=== PATIENT | female | born 1950 | race Caucasian/White ===

== ENCOUNTER 2017-01-26 08:45 | Inpatient (IN) | payer OTHER ==
[2017-01-10 12:20] VITALS: BMI 64.0
--- NOTE | 2017-01-10 13:05 | PAT Medication Instructions ---
Service Date Jan 10, 2017. Current Home Medication List Furosemide (Lasix), 1 TAB PO PM Levothyroxine Sodium (Synthroid), Unknown Dose PO QAM Sitagliptin-Metformin Hcl (Janumet), Unknown Dose PO BID Medication Instructions For Your Scheduled Surgery - Hold the following medications 48 hours prior to surgery: Sitagliptin-Metformin Hcl (Janumet), Unknown Dose PO BID - Take the following medications the morning of surgery with a sip of water: Levothyroxine Sodium (Synthroid), Unknown Dose PO QAM - Take the following medications as scheduled the night before surgery: Furosemide (Lasix), 1 TAB PO PM If you have any questions please call us at [phone] (Nathaly Marsh PA-C) or [phone] or [phone]
--- NOTE | 2017-01-10 14:01 | DIAGNOSTIC IMAGING REPORT ---
CHEST 2 VIEWS ROUTINE CLINICAL HISTORY: Preoperative evaluation. COMPARISON STUDY: No previous studies for comparison. FINDINGS: Lung volumes are normal. There is no pneumothorax or pleural effusion. There is no consolidation. Pulmonary vascularity is normal. There is mild cardiomegaly. Mediastinal contours are otherwise normal. IMPRESSION: 1. No acute cardiopulmonary findings. 2. Mild cardiomegaly. Electronically signed by: Daniel Pantoja M.D. 01/10/2017 1:59 PM Dictated Date/Time: 01/10/2017 1:58 PM
[2017-01-10 14:42] LABS: INR 1.2 (0.9-1.1); PARTIAL THROMBOPLASTIN RATIO 1.1; PROTHROMBIN TIME (PATIENT) 12.7 SECONDS (9.0-12.0)
[2017-01-10 14:48] LABS: BASO % 0.5 %; BASO ABS # 0.02 K/uL (0-0.2); COMPLETE YES; EOS % 3.5 %; HEMATOCRIT 39.5 % (37-47); IG% 0.3 %; LYMPH % 23.3 %; LYMPH ABS # 0.92 K/uL (1.2-3.4); MEAN CELL VOLUME 93.8 fL (80-100); MEAN CORPUSCULAR HEMOGLOBIN 31.8 pg (25-34); MEAN CORPUSCULAR HGB CONC 33.9 g/dl (32-36); MEAN PLATELET VOLUME 12.1 fL (7.4-10.4); MONO % 12.9 %; NEUT % 59.5 %; PLATELET COUNT 112 K/uL (130-400); RED BLOOD COUNT 4.21 M/uL (4.2-5.4); WHITE BLOOD COUNT 3.95 K/uL (4.8-10.8)
[2017-01-10 14:50] LABS: URINE APPEARANCE CLEAR (CLEAR); URINE BILIRUBIN NEG (NEG); URINE COLOR YELLOW; URINE EPITHELIAL CELL AUTO >30 /lpf (0-5); URINE NITRITE NEG (NEG); URINE SPECIFIC GRAVITY 1.014 (1.000-1.030); UROBILINOGEN POS (NEG)
[2017-01-10 14:54] LABS: MANUAL MICROSCOPIC REQUIRED? NO; REVIEW REQ? NO
[2017-01-10 15:30] LABS: CALCIUM 9.8 mg/dl (8.5-10.1)
[2017-01-10 16:01] LABS: BUN/CREATININE RATIO 7.6 (10-20); CREATININE 0.79 mg/dl (0.60-1.20); POTASSIUM 3.8 mmol/L (3.5-5.1)
--- NOTE | 2017-01-25 12:37 | HISTORY & PHYSICAL EXAMINATION ---
DATE OF ADMISSION: 01/26/2017 CHIEF COMPLAINT: Primary osteoarthritis of the left knee. HISTORY OF PRESENT ILLNESS: Macy is a 66-year-old female who had a right total knee arthroplasty done by Dr. Ibanez about 10 years ago. Unfortunately, she has been having left knee pain recently. She did have a left knee arthroscopy in the past, but unfortunately, has gone on to develop arthritis. The x-rays and clinical examination were diagnostic for primary osteoarthritis of the left knee. After failing extensive conservative treatment, she elected to proceed with a left total knee arthroplasty. PAST MEDICAL HISTORY: Significant for diabetes and hypothyroidism. PAST SURGICAL HISTORY: Significant for left knee arthroscopy, left shoulder rotator cuff repair, right total knee arthroplasty and cholecystectomy. ALLERGIES: LATEX. MEDICATIONS: Include Synthroid 0.25 mg daily, Janumet daily and Lasix 40 mg daily. FAMILY HISTORY: Noncontributory. SOCIAL HISTORY: She is , has no children. Moderately active and ambulates with a rolling walker. REVIEW OF SYSTEMS: She complains of left knee pain. All other pertinent review of systems are negative. PHYSICAL EXAMINATION: GENERAL: She is awake, alert and orient x3. She is in no apparent distress. She is very pleasant. HEENT: Pupils are equal, round and reactive to light. Extraocular movements are intact. Oral mucosa is pink and moist. HEART: Regular rate per radial pulse. LUNGS: Zenia symmetrically bilaterally with no audible breath sounds. ABDOMEN: Soft, nontender, and nondistended. MUSCULOSKELETAL: On physical examination of the left knee, the skin looks good. Her left knee is not very large, but she does have a very large pannus. She has good motion from 0-120 degrees. All of her pain is located medially over the distal medial femoral condyle. IMAGING DATA: X-rays of the left knee do show a varus knee with mostly medial compartmental arthritis. IMPRESSION: Primary osteoarthritis of the left knee. PLAN: We will proceed with a Biomet Vanguard left total knee arthroplasty. Postoperatively, she will be kept in the hospital for 2 midnights for postoperative medical management.
[2017-01-26] VITALS (9 sets, daily range): BP systolic 125–180; BP diastolic 69–81; PULSE 58–80; TEMP 36–36.6; O2SAT 95–100; Ht 154.9 cm; Wt 152.6 kg
[~2017-01-26] VITALS: Ht 154.9 cm; Wt 152.6 kg
[2017-01-26] MEDS: TRANEXAMIC ACID INJ 1,000 MG in SODIUM CHLORIDE 0.9% 100ML 100 ML IV SCH ×2 (06:00→06:30)
[~2017-01-26 08:45] MED LIST: ACETAMINOPHEN 500 MG TAB PO SCH; BUPIVACAINE 0.25% 30 ML VIAL ONE; BUPIVACAINE 0.5 % 5 MG/1 ML PF 10ML VIAL ONE; CEFAZOLIN 3000 MG/65 ML D5W 65 ML IV SCH; FAMOTIDINE 20 MG TAB PO SCH; FENTANYL CITRATE INJ 50 MCG/1 ML 2 ML VIAL ONE; FURO-85 PO; GABAPENTIN 300 MG CAP PO SCH; LACTATED RINGER'S 1000ML 1,000 ML IV SCH; LACTATED RINGER'S 1000ML 500 ML IV ONE; LACTATED RINGER'S 1000ML IV SCH; LEVO25TA PO; MIDAZOLAM HCL 1 MG/ML 2ML VIAL ONE; PROPOFOL IV EMULSION 10 MG/ML 20 ML VIAL IV ONE; ROPIVACAINE 5MG/ML 30 ML 150 MG, BUPIVACAINE/EPINEPHR 0.5% MPF 30 ML, KETOROLAC TROMETH... INFIL SCH; SITA50TA5 PO
[2017-01-26] MEDS ORDERED: ATEN-173 PO (09:22)
[2017-01-26] MEDS ORDERED: LACTATED RINGER'S 1000ML 1,000 ML IV PRN (10:13)
[2017-01-26] MEDS ORDERED: METOPROLOL TARTRATE 1 MG/ML VIAL ONE ×2 (10:15→11:29)
[2017-01-26] MEDS ORDERED: ONDANSETRON INJ 2 MG/ML 2 ML VIAL IV PRN ×2 (10:15→13:00)
[2017-01-26] MEDS ORDERED: FENTANYL CITRATE INJ 50 MCG/1 ML 2 ML VIAL IV PRN (10:15)
--- NOTE | 2017-01-26 10:38 | History & Physical Bridge Note ---
H&P Re-Evaluation Bridge Note: I have examined the patient, reviewed the History & Physical and in the interval since the performance of the History & Physical I have noted the following changes of clinical significance: No changes noted
[2017-01-26] MEDS ORDERED: BACITRACIN 50000 UNIT VIAL ONE (10:48)
[2017-01-26] MEDS ORDERED: ORTHO JOINT ANESTHETIC ONE (10:48)
[2017-01-26] MEDS ORDERED: PROPOFOL IV EMULSION 10 MG/ML 20 ML VIAL IV ONE ×2 (11:33)
--- NOTE | 2017-01-26 12:59 | [facility] Post Operative Brief Note ---
Immediate Operative Summary Operative Date January 26, 2017. Pre-Operative Diagnosis Primary osteoarthritis of the left knee Post-Operative Diagnosis Primary osteoarthritis of the left knee Procedure(s) Performed Left Total Knee Arthroplasty, Cemented Surgeon Dr. Daniel Savage Plant Clerk Surgeon(s) Sudheer Villarreal PA-C Estimated Blood Loss 10ml Findings as above Specimens A. Left knee bone and tissue Complication(s) None Disposition Recovery Room / PACU
[2017-01-26] MEDS ORDERED: MAGNESIUM HYDROXIDE SUSP 30 ML UDC PO PRN (13:00)
[2017-01-26] MEDS ORDERED: MoRPHine SULFATE 2 MG/ML CARP IV PRN (13:00)
[2017-01-26] MEDS ORDERED: SILVER SULFADIAZINE 1% CR 50 GM JAR EXT PRN (13:00)
[2017-01-26] MEDS ORDERED: OXYCODONE HCL IR 5 MG TAB (IMMEDIATE RELEASE) PO PRN (13:00)
[2017-01-26] MEDS ORDERED: BISACODYL 10 MG SUPP PR PRN (13:00)
[2017-01-26] MEDS ORDERED: METOCLOPRAMIDE HCL INJ 5 MG/ML 2 ML VIAL IV PRN (13:00)
[2017-01-26] MEDS ORDERED: SOD PHOSPHATE/SOD BIPHOSPHATE ENEMA 132 ML BTL PR PRN (13:00)
--- NOTE | 2017-01-26 13:40 | DIAGNOSTIC IMAGING REPORT ---
LEFT KNEE 1 OR 2 VIEWS ROUTINE CLINICAL HISTORY: AP/LATERAL IN PACU LEFT KNEE postoperative evaluation COMPARISON: None. DISCUSSION: Total joint replacement. Good contact between prosthetic and underlying bone. Expected soft tissue postoperative changes. Surgical drain is in position. IMPRESSION: Anatomic alignment status post total left knee replacement. Electronically signed by: Humble Dickson M.D. 01/26/2017 1:39 PM Dictated Date/Time: 01/26/2017 1:38 PM
--- NOTE | 2017-01-26 14:50 | Anesthesiology Progress Note ---
Anesthesia Post Op Note Date & Time January 26, 2017 at 14:50 Vital Signs Pain Intensity: 0 Vital Signs Past 12 Hours Date Time Temp Pulse Resp B/P Pulse Ox O2 Delivery O2 Flow Rate FiO2 01/26/17 14:35 36.1 62 15 122/52 99 Nasal Cannula 2 01/26/17 14:25 60 13 122/53 98 Nasal Cannula 2 01/26/17 14:15 70 20 138/58 98 Nasal Cannula 2 01/26/17 14:05 62 15 131/49 99 Nasal Cannula 2 01/26/17 13:55 66 18 119/49 98 Nasal Cannula 2 01/26/17 13:45 66 15 116/47 98 Nasal Cannula 2 01/26/17 13:35 64 18 132/58 99 Nasal Cannula 2 01/26/17 13:25 69 15 138/64 98 Nasal Cannula 2 01/26/17 13:15 72 17 144/62 99 Nasal Cannula 2 01/26/17 13:09 36.2 71 12 140/57 95 Nasal Cannula 2 01/26/17 09:30 36.6 80 18 180/69 97 Room Air Notes Mental Status: alert / awake / arousable, participated in evaluation Pt Amnestic to Procedure: No (recall as expected) Nausea / Vomiting: adequately controlled Pain: adequately controlled Airway Patency, RR, SpO2: stable & adequate BP & HR: stable & adequate Hydration State: stable & adequate Neuraxial Anesthesia: was administered, sensory block is resolving Anesthetic Complications: no major complications apparent Pt doing well.
[2017-01-26] MEDS: SODIUM CHLORIDE 0.9% 1000ML 1,000 ML IV SCH (15:36)
[2017-01-26] MEDS ORDERED: GLUCOSE 10 TABS/TUBE PO PRN (16:00)
[2017-01-26] MEDS ORDERED: DEXTROSE 50% 50 ML SYR IV PRN (16:00)
[2017-01-26] MEDS ORDERED: GLUCAGON FOR INJ 1 MG VIAL SQ PRN (16:00)
[2017-01-26] MEDS ORDERED: GLUCOSE 40% GEL 15 GM TUBE PO PRN (16:00)
[2017-01-26] MEDS: ACETAMINOPHEN IV 1,000 MG in EMPTY BAG 0 ML IV SCH ×2 (16:08→22:40)
--- NOTE | 2017-01-26 16:12 | OPERATIVE REPORT ---
DATE OF OPERATION: 01/26/2017 PREOPERATIVE DIAGNOSIS: Primary osteoarthritis of the left knee with morbid obesity and a BMI of 63. POSTOPERATIVE DIAGNOSIS: Same. PROCEDURE: Left total knee arthroplasty. SURGEON: Dr. Daniel Savage. HORTICULTURE TEACHER: Sudheer Villarreal PA-C, whose assistance was necessary for positioning the leg and helping with instrumentation. ANESTHESIA: Spinal with a left adductor nerve block. COMPLICATIONS: None. CONDITION: Stable to PACU. IMPLANTS USED: I used a Biomet Vanguard left total knee arthroplasty system with a size 62.5 left femur, a size 67 tibia, size 10 posterior stabilized poly and a 28 x 8 patella. All complements were cemented with Palacos-G cement. This case was difficult and caused about 50% increase in the operative time than a standard case because of the patient's weight. She has a BMI of 63. This made retraction very difficult and extra assistants were needed in the room. INDICATIONS: Macy is a pleasant 66-year-old female who had a right total knee arthroplasty 10 years ago. Unfortunately, her left knee became very arthritic. There was a point where she was having trouble walking with a walker and she was becoming more sedentary and wheelchair bound. After significant discussions in the office including her weight, she elected to proceed with a left total knee arthroplasty. OPERATION OF PROCEDURE: On 01/26/2017, she arrived at [facility] for the above procedure. She was seen in the preoperative holding area and the operative extremity was identified and signed. She was then given a spinal anesthetic and a left femoral nerve block. She was given a preoperative antibiotic, taken back to the operating room, laid on the table in supine position and put under basic sedation. The left knee was then prepped and draped in sterile fashion. Time-out was done and the patient and operative extremity was properly identified. A midline incision was made directly over the patella. Dissection was taken down through the fat until the extensor mechanism was exposed. Medial parapatellar approach was utilized and the fat pad was excised and medial retinaculum was released and the knee was flexed. A drill was sent down the center of femoral canal followed by an intramedullary urmila. Off that urmila, a distal femoral cutting block was placed. The distal femur was then resected at 12 mm and 5 degrees of valgus. The posterior referencing guide was used and the femur measured to be a size 62.5. Two drill holes were then placed in 3 degrees of external rotation. A 4-in-1 cutting block was placed and anterior, posterior and chamfer cuts were made. The box cutting guide was then used to resect the box for the posterior stabilizing component. The proximal tibia was exposed. A drill was sent down the center of the tibial canal followed by an intramedullary urmila. Off the urmila was a proximal tibial resection guide was placed and 2 mm was resected off the low medial side. The tibia measured to be a size 67 and each tray was placed in the appropriate rotation, drilled and then punched. Time was then spent removing any meniscal remnants being sure there was complete resection of the ACL, PCL and removing any remnants from the posterior aspect of the knee. Femoral and tibial trials were placed as well as a 10 mm polyethylene spacer. The knee was brought through a full range of motion and felt to be stable. The patella was everted and 8 mm was resected off the posterior aspect of the patella. The patella measured to be a size 28 and 3 drill holes were placed. A trial patella was used. Trial components were then removed, the knee was then irrigated with 3 liters of normal saline solution with bacitracin. Surrounding soft tissues were injected with 100 mL of an orthopedic pain control cocktail. The femoral, tibial, and patellar components were then cemented in place with Palacos-G cement. A size 10 polyethylene spacer seemed to be the best fit. Once cement had dried, a final size 10 poly was snapped into place. The anterior bar was locked. The knee was brought through a full range of motion and felt to be stable. The tourniquet was deflated and hemostasis was controlled. Two drains were placed. The extensor mechanism was closed with a #2 FiberWire suture in the superior medial aspect of the patella and then #1 Vicryl suture, both proximally and distally. Skin was closed with 2-0 Vicryl and 3-0 V-Loc suture and denita. She was then placed in a compressive dressing and taken to the postanesthesia care unit in stable condition. She tolerated the procedure well. I attest to the content of the Intraoperative Record and any orders documented therein. Any exceptio ns are noted below.
[2017-01-26] MEDS ORDERED: PHARMACY GLYCEMIC MGMT CONSULT SCH (17:15)
--- NOTE | 2017-01-26 17:44 | Pharmacy Progress Note ---
Glycemic Control Intl Consult Date of Service January 26, 2017. Scope Glycemic Pharmacist consulted by Dr Savage on 01/26/17 for glycemic control and to write orders per formerly [facility] inpatient glycemic control protocol Objective Weight (Kilograms): 152.600 Accuchecks BSG (last 24hrs): Test 01/26/17 09:18 01/26/17 13:27 01/26/17 17:31 Bedside Glucose 148 mg/dl (70-90) 132 mg/dl (70-90) 142 mg/dl (70-90) Recent Pertinent Medications Outpatient Anti-diabetic Regimen: * Janumet po daily (unknown dose on med rec - will clarify with patient) * A1c unknown Risk Factors for Insulin Resistance: * Steroids: Orthomix (contains 4 mg decadron) x 1 pre-op * Recent Surgery - left TKA on 01/26/17 * Diet: T2DM Assessment & Plan ASSESSMENT: * 66 yr old type 2 diabetic female POD #0 s/p left TKA. * Pt is maintained on oral antidiabetic agents as an outpatient * Oral agents are not recommended for inpatient use d/t drug interactions, changing PO intake, and difficulty titrating for acute hyper/hypoglycemia. ADA recommends re-initiating outpatient oral agents 1-2 days prior to discharge if/ when appropriate if they were held on admission. * ADA & AACE recommend a goal blood sugar range 140-180 mg/dl for the majority of critically ill & non-critically ill patients. However, more stringent targets may be selected in individual cases. Will utilize more stringent goal of 110-140 mg/dl based on patient age & comorbidities. Additionally, tighter glycemic control is warranted to facilitate wound/infection healing. PLAN FOR INPATIENT GLYCEMIC CONTROL: * Holding outpatient oral diabetes medications * Bolus Insulin with NOVOLOG per scale ACHS * Goal Range: Low 110 mg/dL - High 140 mg/dL * Correction Factor: 20 mg/dL/unit * No Nutritional / Prandial insulin ordered at this time - will consider addition to regimen if correction factor is not sufficient * Please note that the plan above was derived based on current level of insulin resistance and hospital stress. These recommendations are appropriate for inpatient admission only. Plan of care upon discharge will need to be reassessed to avoid potential outpatient hypo/hyperglycemia. Thank you.
[2017-01-26] MEDS: KETOROLAC TROMETHAMINE 15 MG/ML VIAL IV. SCH (19:38)
[2017-01-26] MEDS: CEFAZOLIN IV 3,000 MG in DEXTROSE 5% 50ML 50 ML IV SCH (19:39)
[2017-01-26] MEDS: INSULIN ASPART 100 UNITS/ML 3 ML PEN SC SCH ×2 (19:42→21:29)
[2017-01-26] MEDS: DOCUSATE SODIUM 100 MG CAP PO SCH (21:25)
[2017-01-26] MEDS: SENNA 8.6 MG TAB PO SCH (21:26)
[2017-01-26] MEDS: ASPIRIN 325 MG ECTAB PO SCH (21:26)
[2017-01-26] MEDS: FUROSEMIDE 20 MG TAB PO SCH (21:26)
[2017-01-27] VITALS (8 sets, daily range): BP systolic 110–150; BP diastolic 52–82; PULSE 57–77; TEMP 36.2–36.9; O2SAT 94–99
[2017-01-27] MEDS: KETOROLAC TROMETHAMINE 15 MG/ML VIAL IV. SCH ×4 (00:13→18:05)
[2017-01-27] MEDS: SODIUM CHLORIDE 0.9% 1000ML 1,000 ML IV SCH ×2 (00:13→11:30)
[2017-01-27] MEDS: INSULIN ASPART 100 UNITS/ML 3 ML PEN SC SCH ×6 (00:17→21:00)
[2017-01-27] MEDS: CEFAZOLIN IV 3,000 MG in DEXTROSE 5% 50ML 50 ML IV SCH (02:46)
[2017-01-27] MEDS: ACETAMINOPHEN IV 1,000 MG in EMPTY BAG 0 ML IV SCH ×3 (05:19→21:39)
[2017-01-27] MEDS: LEVOTHYROXINE 25 MCG TAB PO SCH (05:20)
[2017-01-27 06:36] LABS: HEMATOCRIT 34.2 % (37-47); MEAN CORPUSCULAR HEMOGLOBIN 31.4 pg (25-34); WHITE BLOOD COUNT 6.22 K/uL (4.8-10.8)
[2017-01-27 07:00] LABS: BUN/CREATININE RATIO 15.7 (10-20); CALCIUM 8.6 mg/dl (8.5-10.1); CREATININE 0.94 mg/dl (0.60-1.20); POTASSIUM 3.9 mmol/L (3.5-5.1)
[2017-01-27 07:05] LABS: MEAN PLATELET VOLUME 11.6 fL (7.4-10.4); PLT ESTIMATE DECREASED
[2017-01-27 07:41] LABS: ESTIMATED AVERAGE GLUCOSE 166 mg/dl; HA1C FLAG Normal (Normal)
[2017-01-27] MEDS: PANTOprazole SOD 40 MG TAB PO SCH (08:51)
[2017-01-27] MEDS: MULTIVITAMIN TAB PO SCH (08:51)
[2017-01-27] MEDS: DOCUSATE SODIUM 100 MG CAP PO SCH ×2 (08:51→21:36)
[2017-01-27] MEDS: ASPIRIN 325 MG ECTAB PO SCH ×2 (08:51→21:36)
[2017-01-27] MEDS ORDERED: LEVO25TA5 PO (08:58)
--- NOTE | 2017-01-27 09:31 | PROGRESS NOTE ---
DATE: 01/27/2017 CHIEF COMPLAINT: Status post left total knee arthroplasty postop day #1. PROGRESS: Macy was seen and examined at bedside today. Overall, she is doing very well. She says she has little to no pain in her knee. She is very happy with the progress to this point. She has been up and ambulating to the bathroom once this morning. She has no complaints. PHYSICAL EXAMINATION: LEFT KNEE: The dressing is clean and dry and the drain is to suction. She is lying with her knee in full extension. She has active dorsiflexion and plantarflexion of her left ankle. LABORATORY DATA: She has an H\T\H of 11.3 and 34.2. Her glucose is stable at 152. Her vital signs are all stable on room air. She is voiding on her own and her Hemovac put out 100 mL this morning. X-rays postoperatively of the left knee showed the prosthesis to be in an anatomic alignment without any evidence of fracture, dislocation or loosening. IMPRESSION: Status post left total knee arthroplasty postop day #1. PLAN: At this point, she is doing very well and happy with her progress. She will be up and ambulating today with physical therapy. Tomorrow the nurse will change the dressing and pull the drain. We are planning discharge to rehab facility on Sunday. DENNIS
[2017-01-27 09:36] LABS: PLATELET COUNT 79 K/uL (130-400)
--- NOTE | 2017-01-27 12:18 | Pharmacy Progress Note ---
Glycemic Control: Progress Nt Date of Service January 27, 2017. Scope Glycemic Pharmacist consulted by Dr Savage on 01/26/17 for glycemic control and to write orders per [facility] inpatient glycemic control protocol. Objective Accuchecks BSG (last 24hrs): Test 01/26/17 13:27 01/26/17 17:31 01/26/17 21:28 01/27/17 00:11 Bedside Glucose 132 mg/dl (70-90) 142 mg/dl (70-90) 171 mg/dl (70-90) 179 mg/dl (70-90) Test 01/27/17 03:53 01/27/17 06:16 01/27/17 08:07 01/27/17 11:45 Bedside Glucose 198 mg/dl (70-90) 152 mg/dl (70-90) 162 mg/dl (70-90) Random Glucose 190 mg/dl (70-99) Laboratory Data (last 24hrs) Test 01/27/17 06:16 Anion Gap 4.0 mmol/L BUN/Creatinine Ratio 15.7 Blood Urea Nitrogen 15 mg/dl Creatinine 0.94 mg/dl Hemoglobin A1c 7.4 % Potassium Level 3.9 mmol/L Sodium Level 143 mmol/L White Blood Count 6.22 K/uL HbA1c: Test 01/27/17 06:16 Hemoglobin A1c 7.4 %(4.5-5.6) H Recent Pertinent Medications Outpatient Anti-diabetic Regimen: * Janumet 50/1000mg * 1 tablet PO BID (patient admits to 1 tab daily some days due to decreased PO intake) * A1c = 7.4 % 01/2017 The patient is currently receiving: * Basal insulin: * none at this time * Bolus Insulin: * NovoLog SQ AC/HS - Goal Range: Low 110 mg/dL - High 140 mg/dL - Correction Factor: 20 mg/dL/unit - Carb ratio of 1 unit per 8 grams CHO consumed * Oral Agents: * held on admission Risk Factors for Insulin Resistance: * IVF: NSS * Recent Surgery: POD#1 * Diet: T2DM Assessment & Plan ASSESSMENT: Initial: * 66 yr old type 2 diabetic female s/p left TKA. * Pt is maintained on oral antidiabetic agents as an outpatient * Oral agents are not recommended for inpatient use d/t drug interactions, changing PO intake, and difficulty titrating for acute hyper/hypoglycemia. ADA recommends re-initiating outpatient oral agents 1-2 days prior to discharge if/ when appropriate if they were held on admission. * ADA & AACE recommend a goal blood sugar range 140-180 mg/dl for the majority of critically ill & non-critically ill patients. However, more stringent targets may be selected in individual cases. Will utilize more stringent goal of 110-140 mg/dl based on patient age & comorbidities. Additionally, tighter glycemic control is warranted to facilitate wound/infection healing. Current: * BSGs decently controlled with current regimen * carb ratio added this AM for further improvement * Likely discharge Sunday * begin home oral medications tomorrow with breakfast to begin transition to outpatient regimen * when PO meds begin, remove carb ratio to avoid hypoglycemia * A1c- current * added to discharge instructions PLAN FOR INPATIENT GLYCEMIC CONTROL: * Basal insulin * forgo at this time * Bolus Insulin: * NOVOLOG SQ AC/HS - Goal Range: Low 110 mg/dL - High 140 mg/dL - Correction Factor: 20 mg/dL/unit - Carb ratio 1 unit per 8 g of CHO consumed - remove when PO meds start * Oral medications - begin 01/28 * Janumet 50/1000mg PO BID taken at home - this is non-formulary, however the individual components are stocked - Januvia 50mg PO BID - Metformin 1000mg PO BID with meals RECOMMENDATIONS FOR DISCHARGE: * Ms Nicholas can continue home regimen at discharge. I did speak with her on the phone an stressed the importance of compliance and reviewed her current A1c with her. * Please note that the plan above was derived based on current level of insulin resistance and hospital stress. These recommendations are appropriate for inpatient admission only. Plan of care upon discharge will need to be reassessed to avoid potential outpatient hypo/hyperglycemia. Thank you.
[2017-01-27] MEDS: FUROSEMIDE 20 MG TAB PO SCH (21:37)
[2017-01-27] MEDS: SENNA 8.6 MG TAB PO SCH (21:37)
[2017-01-28] MEDS: KETOROLAC TROMETHAMINE 15 MG/ML VIAL IV. SCH ×3 (00:31→11:58)
[2017-01-28] MEDS: LEVOTHYROXINE 25 MCG TAB PO SCH (06:00)
[2017-01-28] MEDS: ACETAMINOPHEN IV 1,000 MG in EMPTY BAG 0 ML IV SCH (06:01)
[2017-01-28 07:04] VITALS: BP 150/78; PULSE 75; TEMP 36.4; O2SAT 95
[2017-01-28] MEDS: DOCUSATE SODIUM 100 MG CAP PO SCH ×2 (07:23→19:09)
[2017-01-28] MEDS: PANTOprazole SOD 40 MG TAB PO SCH (07:26)
[2017-01-28] MEDS: MULTIVITAMIN TAB PO SCH (07:26)
[2017-01-28] MEDS: METFORMIN HCL 500 MG TAB PO SCH ×2 (07:27→17:33)
[2017-01-28] MEDS: SITAGLIPTIN 25 MG TAB PO SCH ×2 (07:27→17:32)
[2017-01-28] MEDS: INSULIN ASPART 100 UNITS/ML 3 ML PEN SC SCH ×4 (07:32→20:47)
[2017-01-28] MEDS: ASPIRIN 325 MG ECTAB PO SCH ×2 (07:39→20:45)
[2017-01-28] MEDS ORDERED: RXC5 PO (09:02)
[2017-01-28] MEDS ORDERED: ASPEC325 PO (09:02)
--- NOTE | 2017-01-28 09:04 | Discharge Instructions ---
Discharge Instructions Date of Service January 28, 2017. Admission Reason for Admission: Left Knee Osteoarthritis Discharge Discharge Diagnosis / Problem: Left Total Knee Discharge Goals Goal(s): Decrease discomfort, Improve function Activity Recommendations Activity Limitations: as noted below . Instructions / Follow-Up Instructions / Follow-Up Activity and Therapy Recommendations: * If you are using [facility] then Physical Therapy will be provided until they feel you are ready to start Outpatient Physical Therapy. If you are not using a Home Health agency then Outpatient Physical Therapy should start about 3-5 days from your day of surgery. Therapy will last about 6-10 weeks * It is important not to put a pillow under your knee when you are relaxing or sleeping. It is just as important to make sure you are getting your knee perfectly straight as it is to regain your knee bend. * You were shown a series of exercises in the hospital. Do these exercises three times each day including the exercises you were shown in physical therapy. * Get up and walk several times each day. For the first four weeks, try not to stand or walk for more than one hour at a time. If you do stand or walk for more than one hour, you will not hurt anything, but your leg will likely swell. * As you feel comfortable, you may change from the walker or crutches to a cane and then to independent walking. Medications: * Narcotic You will likely be sent home from the hospital with a prescription for the narcotic pain medication that worked best throughout your stay. * Aspirin Most patients will be required to take Aspirin 325mg twice a day for 6 weeks after surgery. This is obtained [id number] and a prescription is not necessary. * Other medications may be prescribed for specific circumstances. If you have any questions, please call the office at . * Resume previous home medications unless otherwise instructed TEDs/Elastic Stockings: The white elastic stockings help limit swelling and prevent blood clots from forming in your legs.~ The more you wear them, the more they work. Wear them for six weeks. Showering: You may shower 5 days from the day of surgery. Let the soapy shower water run over the denita. Do not scrub or soak the incision. Things To Watch For: * Drainage from the incision site that occurs more than one week after your surgery. * Increased redness at the incision site. * Fever above 102 degrees Fahrenheit. * Unusual chest pain or shortness of breath. * Call [facility] at with any of the above problems Follow-Up Visit: Follow-up with Dr. Savage 2-3 weeks after your day of surgery. An appointment was probably scheduled when you signed-up for surgery in the office. If you have any questions call Office Instructions: More detailed instructions as well as Frequently Asked Questions were provided in a folder by our office when you signed-up for surgery. Please review these instructions when you get home. If you have any further questions or concerns, please feel free to call the office at [phone] Current Hospital Diet Patient's current hospital diet: Diabetes Type 2 Diet Discharge Diet Recommended Diet: Diabetes Type 2 Diet Procedures Procedures Performed: Left Total Knee Arthroplasty, Cemented Pending Studies Studies pending at discharge: no Laboratory Results Hemoglobin A1c Test 01/27/17 06:16 Range/Units Estimated Average Glucose 166 mg/dl Hemoglobin A1c 7.4 H 4.5-5.6 % Medical Emergencies . Who to Call and When: Medical Emergencies: If at any time you feel your situation is an emergency, please call 911 immediately. . Non-Emergent Contact Non-Emergency issues call your: Surgeon Call Non-Emergent contact if: wound has increased drainage, wound has increased redness . "Provider Documentation" section prepared by Daniel Savage. . VTE Core Measure Inpt VTE Proph given/why not?: Other Anticoagulation (Aspirin 325 twice a day for 6 weeks), T.E.D. Stockings
[2017-01-28] MEDS ORDERED: NURSING VERBAL MED ORDER ONE (09:30)
--- NOTE | 2017-01-28 10:33 | PROGRESS NOTE ---
DATE: 01/28/2017 CHIEF COMPLAINT: Status post left total knee arthroplasty postop day #2. HISTORY OF PRESENT ILLNESS: Macy was seen and examined at bedside today. Overall, she is doing very well. She is not having much pain in the knee. She is ambulating well with physical therapy. She is happy with her progress at this point and has no complaints. PHYSICAL EXAMINATION: LEFT KNEE: The dressing has been changed. The drain has been pulled: The incision is clean and dry without any signs of infection or drainage. She is neurovascularly intact. IMPRESSION: Status post left total knee arthroplasty postop day #2. PLAN: At this point, she is actually doing fairly well. The incision looks good and we will get more therapy today. She is on aspirin 325 twice a day for DVT prophylaxis. Her plan is to be discharged to a rehab facility tomorrow morning.
[2017-01-28] MEDS: ACETAMINOPHEN 500 MG TAB PO SCH ×2 (13:59→20:46)
[2017-01-28 15:12] VITALS: BP 148/61; PULSE 64; TEMP 36.2; O2SAT 100
[2017-01-28] MEDS: SENNA 8.6 MG TAB PO SCH (19:09)
[2017-01-28] MEDS: FUROSEMIDE 20 MG TAB PO SCH (20:45)
[2017-01-28 23:15] VITALS: BP 128/68; PULSE 70; TEMP 36.5; O2SAT 95
[2017-01-29] MEDS: LEVOTHYROXINE 25 MCG TAB PO SCH (05:44)
[2017-01-29] MEDS: ACETAMINOPHEN 500 MG TAB PO SCH ×3 (05:45→21:00)
[2017-01-29 06:45] VITALS: BP 146/78; PULSE 67; TEMP 36.6; O2SAT 94
[2017-01-29] MEDS: INSULIN ASPART 100 UNITS/ML 3 ML PEN SC SCH ×4 (08:00→21:00)
--- NOTE | 2017-01-29 08:29 | Anesthesiology Progress Note ---
Anesthesia Post Op Note Date & Time January 29, 2017 at 08:28 Vital Signs Pain Intensity: 2.0 Vital Signs Past 12 Hours Date Time Temp Pulse Resp B/P Pulse Ox O2 Delivery O2 Flow Rate FiO2 01/29/17 06:45 36.6 67 16 146/78 94 Room Air 01/28/17 23:15 36.5 70 16 128/68 95 Room Air Notes Mental Status: alert / awake / arousable, participated in evaluation Pt Amnestic to Procedure: Yes Nausea / Vomiting: adequately controlled Pain: adequately controlled Airway Patency, RR, SpO2: stable & adequate BP & HR: stable & adequate Hydration State: stable & adequate Neuraxial Anesthesia: sensory block resolved Anesthetic Complications: no major complications apparent
[2017-01-29] MEDS: METFORMIN HCL 500 MG TAB PO SCH ×2 (09:22→18:10)
[2017-01-29] MEDS: SITAGLIPTIN 25 MG TAB PO SCH ×2 (09:23→18:10)
[2017-01-29] MEDS: DOCUSATE SODIUM 100 MG CAP PO SCH ×2 (09:23→20:32)
[2017-01-29] MEDS: ASPIRIN 325 MG ECTAB PO SCH ×2 (09:24→20:39)
[2017-01-29] MEDS: MULTIVITAMIN TAB PO SCH (09:24)
[2017-01-29] MEDS: PANTOprazole SOD 40 MG TAB PO SCH (09:25)
[2017-01-29 14:08] VITALS: BP 146/78; PULSE 67; TEMP 36.6; O2SAT 94
[2017-01-29 15:33] VITALS: BP 148/68; PULSE 68; TEMP 36.2; O2SAT 90
[2017-01-29] MEDS: SENNA 8.6 MG TAB PO SCH (20:32)
[2017-01-29] MEDS: FUROSEMIDE 20 MG TAB PO SCH (20:33)
--- NOTE | 2017-02-05 22:04 | DISCHARGE SUMMARY ---
DISCHARGE DIAGNOSIS: Primary osteoarthritis of the left knee. PROCEDURE: Left total knee arthroplasty on 01/26/[address] Daniel Savage. DISCHARGE INSTRUCTIONS: 1. Aspirin 325 mg twice a day. 2. Oxycodone 5-10 mg every 4 hours as needed for pain. 3. Atenolol 25 mg daily. 4. Lasix 20 mg daily. 5. Synthroid 25 mcg daily. 6. Janumet 50-1000 mg twice a day. 7. Weightbear as tolerated. 8. Follow up with Dr. Savage in 2-3 weeks. 9. Call the office of Dr. Savage with any questions or concerns. HOSPITAL COURSE: Macy is a pleasant 66-year-old female who presented to my office with chronic left knee pain. X-rays and clinical examination were diagnostic for primary osteoarthritis of the left knee. After failing conservative treatment, she elected to undergo a left total knee arthroplasty. On 01/26/2017, she arrived at [facility] and underwent a left total knee arthroplasty without complications. She had a spinal anesthetic and a left femoral nerve block. Postoperatively, she was discharged to general orthopedic floors. Her hospital course was uneventful. On postop day #1, her H\T\H was stable at 11.3 and 34.2. She was able to get up and ambulate with physical therapy and her pain was well controlled. On postop day #2, she continued to do well. The dressing was changed, the drain was pulled and she still worked well with physical therapy. On postop day #3, she continued doing well. She has got a little bit more physical therapy, her pain was controlled and she was subsequently discharged to rehab with the above instructions.
== END 2017-01-29 22:25 | DRG 470 ==
LOC: ENRESERVDT → ENRESERVTM → C.ACU 08:45 → C.3E 10:30
PROVIDERS: ADMIT Orthopaedic Surgery; ATTEND Orthopaedic Surgery
PROC: 0SRD0J9 Replacement of Left Knee Joint with Synthetic Substitute, Cemented, Open Approach (ICD-10-PCS; principal; 2017-01-26 11:10)
DX: M17.12 Unilateral primary osteoarthritis, left knee (principal); Z68.44 Body mass index [BMI] 60.0-69.9, adult; I38 Endocarditis, valve unspecified; E11.9 Type 2 diabetes mellitus without complications; E66.01 Morbid (severe) obesity due to excess calories; K44.9 Diaphragmatic hernia without obstruction or gangrene; R00.2 Palpitations; M54.2 Cervicalgia; E03.9 Hypothyroidism, unspecified; Z96.651 Presence of right artificial knee joint; I65.29 Occlusion and stenosis of unspecified carotid artery; R60.0 Localized edema; Z79.899 Other long term (current) drug therapy; Z79.84 Long term (current) use of oral hypoglycemic drugs

== ENCOUNTER 2019-01-02 12:28 | Inpatient (IN) ==
--- NOTE | 2019-01-01 10:07 | Anesthesiology Consultation ---
Date of Service January 01, 2019 Assessment & Plan (1) Encounter for pre-operative examination: - Patient scheduled for right shoulder abscess incision and drainage with total shoulder components exchange on 01/02/19 (chart sent to PAT for review day prior to surgery 01/01*). Per RN phone interview 01/01, patient states a. fib during 12/2018 [facility] [place] admission 2/2 sepsis (appears to be new per chart review). Continued on beta eduar; denies being started on ASA/AC upon discharge. It sounds like patient was converted with medical management per RN interview. Per Dr. Savage, there is concern that the shoulder abscess might be the etiology of recent sepsis and feel that this surgery is urgent. Discussed with Dr. Wolf Rodas (scheduled to have patient's case)- order written for [facility] cardio evaluation tomorrow morning at [facility] prior to surgery (OR aware and will have pa tiejuan daniel come in early). Awaiting cardio preop evaluation and vitals AM DOS to determine if acceptable risk to proceed with surgery. - S/P Right reverse TSA= 03/22/18= Grade view 2, "elective" glidescope due to suboptimal position on beach chair "atraumatic", ETT 7.0 at [facility] - Check BSG AM DOS Chart Review Chart Review: Patient NOT seen in Pre Admission Testing History Surgery Operation Date: 01/02/19 14:50 Proposed Procedures p Right Shoulder Abscess Incision and Drainage with Exchange of Total Shoulder Components - Daniel Savage, DO Height/Weight Height: 5 ft 1 in Weight: 144.242 kg Allergies Allergy/AdvReac Type Severity Reaction Status Date / Time latex Allergy Unknown DRY Cough, Verified 01/01/19 10:28 HIVES, RASH prednisone AdvReac Unknown elevated Verified 01/01/19 10:28 LFT Medications Home Medications Medication Instructions Recorded Confirmed Last Taken Lactobacillus acidophilus 1 cap PO QAM 01/01/19 01/01/19 Unknown [Probiotic Acidophilus] amoxicillin-pot clavulanate 1 tab PO Q12H 01/01/19 01/01/19 Unknown [Augmentin] atenolol 25 mg PO QAM 01/01/19 01/01/19 Unknown furosemide 40 mg PO BID 01/01/19 01/01/19 Unknown gabapentin 300 mg PO BID 01/01/19 01/01/19 Unknown insulin glargine [Lantus U-100 34 unit SUBCUT BID 01/01/19 01/01/19 Unknown Insulin] levothyroxine [Synthroid] 25 mcg PO QAM 01/01/19 01/01/19 Unknown sitagliptin-metformin [Janumet] 1 tab PO BID 01/01/19 01/01/19 Unknown Past Medical History Medical History Essential tremor Morbid obesity Diabetes mellitus IDDM Aortic stenosis MODERATE (OSEI 1.1CM2, MEAN GRADIENT 25MMHG) PER 12/2018 ECHO Osteoarthritis Rotator cuff arthropathy of right shoulder Atrial fibrillation ?NEW ONSET A. 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 Hypertension Hypothyroidism Kidney stones Sepsis 12/2018 AT [facility]- ?RELATED TO SHOULDER ABSCESS (REASON FOR UPCOMING PROCEDURE) Thrombocytopenia CHRONIC FELT 2/2 CIRRHOSIS Past Family History Family History Aunt Family history of diabetes mellitus Mother Family history of diabetes mellitus Past Surgical History Surgical History History of esophagogastroduodenoscopy (EGD) History of total right knee replacement History of total replacement of right shoulder joint History of total replacement of left shoulder joint PARTIAL History of total left knee replacement History of cholecystectomy History of cardiac cath 2014= NO STENTS History of colonoscopy History of cystoscopy WITH KIDNEY STONE BASKETING/REMOVAL Testing Electrocardiogram Date: 02/18/18 Findings: + NSR @ (64) Chest X-Ray Date: 03/15/18 Findings: + NAD and + cardiomegaly (MILD) Echocardiogram Date: 12/20/18 EF 60-65%. LVH. Mild LAE/RENEE. Mild MR. Moderate aortic stenosis (OSEI 1.1cm2, MG 25mmhg). Grade II DD. Moderate to severe mitral annular calcification with mild mitral stenosis (MG 6mmhg). Mild pulmonary HTN 44mmhg. Consistent with increased risk atrial pressure. Cardiac Catheterization Date: 05/27/15 Angiographically normal coronary arteries. Laboratory Results 12/30/18 WBC 6.02 H/H 11.0/33.7 PLATELETS 139 SODIUM 140 POTASSIUM 3.6 CHLORIDE 102 CO2 26 BUN 13 CREATININE 0.76 GLUCOSE 79
--- NOTE | 2019-01-02 11:10 | History & Physical Report ---
Date of Service January 02, 2019 Assessment & Plan (1) Prosthetic shoulder infection: We will proceed with an irrigation and debridement with component exchange of the right shoulder. Postoperatively she will be admitted to the hospital and kept on IV antibiotics. Infectious disease team will be consulted and the hospitalist will be consulted as well. She will likely be in the hospital for about 3 days postoperatively. Present on Admission?: Yes History of Present Illness Primary Care Provider: Prisca Ortega MD Macy is a pleasant 68-year-old female who underwent a reverse right shoulder arthroplasty about 10 months ago. She did very well for 9 months. She has full range of motion and no pain within her shoulder. Her postoperative course was completely uneventful. Unfortunately she was not compliant with her diabetic medications postoperatively. Her hemoglobin A1c ming to 11.7. She then developed cellulitis of her legs and it spread to her abdomen. She started on oral antibiotics but unfortunately her condition worsened. She then became septic. She went to a local emergency room and was treated with fluids and pressors and was transferred to [facility]. While at [facility] her condition improved but she developed a large abscess on the anterior aspect of her right shoulder. She began having significant right shoulder pain. She then presented to my office with an obvious acute hematogenous right shoulder infection. After brief discussions in the office we elected to proceed with an I&D and complement exchange. Allergies Allergy/AdvReac Type Severity Reaction Status Date / Time latex Allergy Unknown DRY Cough, Verified 01/01/19 10:28 HIVES, RASH prednisone AdvReac Unknown elevated Verified 01/01/19 10:28 LFT Home Medications Home Medications Medication Instructions Recorded Confirmed Type Lactobacillus acidophilus 1 cap PO QAM 01/01/19 01/01/19 History [Probiotic Acidophilus] amoxicillin-pot clavulanate 1 tab PO Q12H 01/01/19 01/01/19 History [Augmentin] atenolol 25 mg PO QAM 01/01/19 01/01/19 History furosemide 40 mg PO BID 01/01/19 01/01/19 History gabapentin 300 mg PO BID 01/01/19 01/01/19 History insulin glargine [Lantus U-100 34 unit SUBCUT BID 01/01/19 01/01/19 History Insulin] levothyroxine [Synthroid] 25 mcg PO QAM 01/01/19 01/01/19 History sitagliptin-metformin [Janumet] 1 tab PO BID 01/01/19 01/01/19 History Past Med/Surg History Medical History Essential tremor Morbid obesity Diabetes mellitus IDDM Aortic stenosis MODERATE (OSEI 1.1CM2, MEAN GRADIENT 25MMHG) PER 12/2018 ECHO Osteoarthritis Rotator cuff arthropathy of right shoulder Atrial fibrillation ?NEW ONSET A. 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 Hypertension Hypothyroidism Kidney stones Sepsis 12/2018 AT [facility]- ?RELATED TO SHOULDER ABSCESS (REASON FOR UPCOMING PROCEDURE) Thrombocytopenia CHRONIC FELT 2/2 CIRRHOSIS Surgical History History of esophagogastroduodenoscopy (EGD) History of total right knee replacement History of total replacement of right shoulder joint History of total replacement of left shoulder joint PARTIAL History of total left knee replacement History of cholecystectomy History of cardiac cath 2014= NO STENTS History of colonoscopy History of cystoscopy WITH KIDNEY STONE BASKETING/REMOVAL Family History Aunt Family history of diabetes mellitus Mother Family history of diabetes mellitus Social History Preferred Language: Kyrgyz Communication Ability: Effective Or First Assist Registered Nurse Required: No Beliefs That Will Affect Care: None Current Living Situation: Alone Other Information That Helps Us Care for You: No Feels Safe at Home: Yes Safety Concerns: Feels Safe At This Time Smoking Status: Never smoker Do You Dip or Chew Tobacco: No Second Hand Exposure: No Tobacco Cessation Education Requested by Patient: No Hx Alcohol Use: No Hx Substance Use: No Physical Exam Musculoskeletal: On physical examination of the right shoulder, there is a large anterior abscess. She has limited range of motion of her shoulder at this time. Her radial median ulnar and axillary nerves are checked and intact.
[~2019-01-02 12:28] MED LIST changes: -ACETAMINOPHEN 500 MG TAB PO SCH; -BUPIVACAINE 0.25% 30 ML VIAL ONE; -CEFAZOLIN 3000 MG/65 ML D5W 65 ML IV SCH; +CEFAZOLIN 3000MG 65 ML IV SCH; -FAMOTIDINE 20 MG TAB PO SCH; -FENTANYL CITRATE INJ 50 MCG/1 ML 2 ML VIAL ONE; -FURO-85 PO; -GABAPENTIN 300 MG CAP PO SCH; -LACTATED RINGER'S 1000ML 1,000 ML IV SCH; -LACTATED RINGER'S 1000ML 500 ML IV ONE; -LACTATED RINGER'S 1000ML IV SCH; -LEVO25TA PO; +LR 15ML/HR IV SCH; +LR 60ML/HR IV SCH; -MIDAZOLAM HCL 1 MG/ML 2ML VIAL ONE; -PROPOFOL IV EMULSION 10 MG/ML 20 ML VIAL IV ONE; +ROPIVACAINE 0.5% 5 MG/ML 30 ML VIAL ONE; -ROPIVACAINE 5MG/ML 30 ML 150 MG, BUPIVACAINE/EPINEPHR 0.5% MPF 30 ML, KETOROLAC TROMETH... INFIL SCH; -SITA50TA5 PO
--- NOTE | 2019-01-02 13:34 | History & Physical Bridge Note ---
Date of Service January 02, 2019 History & Physical Bridge Note I have examined the patient, reviewed the History & Physical and in the interval since the performance of the History & Physical I have noted the following changes of clinical significance: no changes noted
[2019-01-02] MEDS ORDERED: PROPOFOL IV EMULSION 10 MG/ML 20 ML VIAL IV ONE (14:33)
[2019-01-02] MEDS ORDERED: MIDAZOLAM HCL 1 MG/ML 2ML VIAL ONE (14:33)
[2019-01-02] MEDS ORDERED: fentaNYL citrate 100 MCG/2 ML VIAL ONE (14:33)
[2019-01-02] MEDS ORDERED: ONDANSETRON INJ 2 MG/ML 2 ML VIAL ONE (14:33)
[2019-01-02] MEDS ORDERED: ROCURONIUM BROMIDE 10 MG/ML 5 ML VIAL ONE (14:33)
[2019-01-02] MEDS ORDERED: LIDOCAINE HCL 2% 2 ML VIAL/AMP(20MG/ML) INFIL ONE (14:33)
--- NOTE | 2019-01-02 15:30 | Cardiology Consultation ---
Date of Consultation January 02, 2019 Assessment & Plan (1) Atrial fibrillation: She reportedly had atrial fibrillation during her hospitalization for sepsis recently, she seemed to have been aware of it based on symptoms of a rapid heart rate, she recalls being on heparin and she was not sent home on anticoagulants. Although I do not have details regarding the atrial arrhythmia it seems that it was not felt to be a long-standing issue. Should she develop recurrent atrial fibrillation it sounds as though rate control would not be an issue so I would not do anything in advance regarding this arrhythmia. (2) Aortic stenosis: She has aortic stenosis which is graded as moderate with a valve area of 1.1 and a valve gradient of 25 mmHg by echocardiography recently in [place]. That should not interfere with her surgery. (3) Mitral regurgitation: She has audible mitral regurgitation on exam, it does not seem to be mentioned in the echo report so I suspect it is not severe. He does report mild mitral stenosis. This should also not be an issue for the surgery. (4) RBBB: She has a long-standing right bundle branch block, her electrocardiogram today is no different than it was several years ago or recently. This should not be an issue. (5) Encounter for pre-operative examination: Although she has a number of cardiac abnormalities including a history of atrial fibrillation, right bundle branch block, aortic stenosis, mitral regurgitation and diastolic dysfunction I think she is an acceptable risk for surgery. I would be careful with volume during and after the surgery however. If atrial fibrillation occurs we would have to use rate control but does not sound as though she had hemodynamically significant problems with it. I would therefore go ahead with surgery as planned. History of Present Illness Reason for Consultation: Preoperative clearance Attending Physician: Daniel Savage, History of Present Illness This is a very pleasant 68-year-old woman presenting for surgery for a right shoulder infection. She does have a history of catheterization, I believe twice, the more recent performed in [place]. I believe she had a catheterization 2005 which based on historical records is referenced to having nonobstructive coronary artery disease, however she also had a catheterization May 27, 2015 in [place] which is reported to show normal coronary arteries. She has never had symptoms of angina, she does not have chest discomfort, she does have shortness of breath but she is quite overweight. She does have a history of diabetes mellitus, hyperlipidemia and hypertension. She was recently in [facility] for sepsis where she had a transthoracic echo performed. The report I have is a impressions copied into the discharge summary so it does not give the date of the echo, other records say that it was done December 20, 2018. This showed normal left ventricular size with left ventricular hypertrophy but normal left ventricular systolic function, ejection fraction 60 to 65%. She did have moderate aortic stenosis with a valve area of 1.1 cm and a mean gradient of 25 mmHg. She did have mitral annular calcification with mild mitral stenosis and she had mild mitral stenosis. I believe she had atrial fibrillation while at [place], she was aware of her heart beating rapidly but I believe it was brief (I do not have detailed records to review) and she was sent home without anticoagulants but she recalls being on heparin during her hospitalization. Since going home she has had no palpitatio ns. She does have chronic leg edema and cellulitis, this is actually been improved and she has visiting nurses. She is quite obese. Allergies Allergy/AdvReac Type Severity Reaction Status Date / Time latex Allergy Unknown DRY Cough, Verified 01/02/19 12:56 HIVES, RASH prednisone AdvReac Unknown elevated Verified 01/02/19 12:56 LFT Home Medications Home Medications Medication Instructions Recorded Confirmed Type Lactobacillus acidophilus 1 cap PO QAM 01/01/19 01/02/19 History [Probiotic Acidophilus] amoxicillin-pot clavulanate 1 tab PO Q12H 01/01/19 01/02/19 History [Augmentin] atenolol 25 mg PO QAM 01/01/19 01/02/19 History furosemide 40 mg PO BID 01/01/19 01/02/19 History gabapentin 300 mg PO BID 01/01/19 01/02/19 History insulin glargine [Lantus U-100 17 unit SUBCUT BID 01/01/19 01/02/19 History Insulin] levothyroxine [Synthroid] 25 mcg PO QAM 01/01/19 01/02/19 History sitagliptin-metformin [Janumet] 1 tab PO BID 01/01/19 01/02/19 History Patient History Medical History Essential tremor Morbid obesity Diabetes mellitus IDDM Aortic stenosis MODERATE (OSEI 1.1CM2, MEAN GRADIENT 25MMHG) PER 12/2018 ECHO Osteoarthritis Rotator cuff arthropathy of right shoulder Cellulitis (Acute) Atrial fibrillation ?NEW ONSET A. 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 Thrombocytopenia CHRONIC FELT 2/2 CIRRHOSIS Surgical History History of esophagogastroduodenoscopy (EGD) History of total right knee replacement History of total replacement of right shoulder joint History of total replacement of left shoulder joint PARTIAL History of total left knee replacement History of cholecystectomy History of cardiac cath 2014= NO STENTS History of colonoscopy History of cystoscopy WITH KIDNEY STONE BASKETING/REMOVAL Family History Aunt Family history of diabetes mellitus Mother Family history of diabetes mellitus Social History Preferred Language: Cymraes Communication Ability: Effective Merchandise Presentation Associate Required: No Beliefs That Will Affect Care: None Current Living Situation: Alone Other Information That Helps Us Care for You: No Feels Safe at Home: Yes Safety Concerns: Feels Safe At This Time Smoking Status: Never smoker Do You Dip or Chew Tobacco: No Second Hand Exposure: No Tobacco Cessation Education Requested by Patient: No Hx Alcohol Use: No Hx Substance Use: No Review of Systems Review of Systems: All systems reviewed & are unremarkable except as noted in HPI & below Physical Exam Physical Exam: Constitutional: Alert, cooperative and in no distress. She is obese. HEENT: Unremarkable Neck: No jugular venous distention, carotid pulses are normal and equal bilaterally without bruits. Pulmonary: Clear to auscultation bilaterally. Cardiac: Regular rhythm with a grade 2/6 crescendo decrescendo murmur at the base with little radiation to the carotids, a grade 3/6 holosystolic murmur at the apex, no gallop or rub. Abdomen: Soft, nontender with normal bowel sounds. Extremities: +2 bilateral pedal edema. Erythema of her distal extremities. Neurologic: No focal findings. Gait was not tested. Skin: No rash, ecchymoses or petechiae. Results & Data Vital Signs (Past 12 Hours) Vital Signs Temp Pulse Resp BP Pulse Ox 01/02/19 13:00 36.9 C 76 17 124/58 L 97 Diagnostic Findings An electrocardiogram today demonstrates sinus rhythm at 78 bpm, she has a leftward axis in the right bundle branch block pattern. Similar to prior electrocardiograms.
--- NOTE | 2019-01-02 16:25 | Orthopedic Progress Note ---
Date of Service January 02, 2019 Assessment & Plan (1) Prosthetic shoulder infection: Unfortunately there are several other emergencies that came into the operating room this evening. Due to staffing issues will be unable to wash out her shoulder until much later this evening. She is currently on antibiotics. I felt it was safe to wait until tomorrow to do the washout and complement exchange of her shoulder. I explained this to her at bedside and she understood. I am going to feed her her a diabetic controlled diet and keep her n.p.o. after midnight tonight. Present on Admission?: Yes Subjective Macy was seen in the preoperative holding area. Overall she is doing well in good spirits. She still has some pain in the shoulder. She has no new complaints. Results & Data Vital Signs (Past 12 Hours) Vital Signs Temp Pulse Resp BP Pulse Ox 01/02/19 13:00 36.9 C 76 17 124/58 L 97
[2019-01-02] MEDS ORDERED: ONDANSETRON INJ 2 MG/ML 2 ML VIAL IV PRN (17:06)
[2019-01-02] MEDS ORDERED: METOCLOPRAMIDE HCL INJ 5 MG/ML 2 ML VIAL IV PRN (17:06)
[2019-01-02] MEDS ORDERED: PHARMACY GLYCEMIC MGMT CONSULT PRN (18:01)
[2019-01-02] MEDS: AMOXICILLIN/CLAVULANATE 500 MG TAB PO SCH (18:49)
[2019-01-02] MEDS: FUROSEMIDE 20 MG TAB PO SCH (18:49)
[2019-01-02] MEDS: INSULIN ASPART 100 UNITS/ML 3 ML PEN SC SCH ×2 (18:54→21:05)
[2019-01-02] MEDS: SODIUM CHLORIDE 0.9% 1000ML 1,000 ML IV SCH (19:34)
[2019-01-02] MEDS: GABAPENTIN 300 MG CAP PO SCH (20:40)
[2019-01-02] MEDS ORDERED: Nursing to Pharmacy Communication ONE (23:46)
[2019-01-03] MEDS ORDERED: INSULIN ASPART 100 UNITS/ML 3 ML PEN SC SCH
[2019-01-03] MEDS: INSULIN ASPART 100 UNITS/ML 3 ML PEN SC SCH ×4 (00:12→21:59)
[2019-01-03] MEDS: LEVOTHYROXINE SODIUM 25 MCG TABLET PO SCH (05:56)
[2019-01-03] MEDS: FUROSEMIDE 20 MG TAB PO SCH ×2 (12:34→21:25)
[2019-01-03] MEDS: AMOXICILLIN/CLAVULANATE 500 MG TAB PO SCH (12:34)
--- NOTE | 2019-01-03 14:10 | History & Physical Bridge Note ---
Date of Service January 03, 2019 History & Physical Bridge Note I have examined the patient, reviewed the History & Physical and in the interval since the performance of the History & Physical I have noted the following changes of clinical significance: no changes noted
[2019-01-03] MEDS ORDERED: EPINEPHrine INJ 1 MG/ML AMP ONE (15:28)
[2019-01-03] MEDS ORDERED: ROPIVACAINE 0.5% 5 MG/ML 30 ML VIAL ONE (15:28)
[2019-01-03] MEDS ORDERED: CEFAZOLIN 3000MG/72.5 ML BAG IV ONE (15:31)
[2019-01-03] MEDS ORDERED: fentaNYL citrate 100 MCG/2 ML VIAL ONE ×3 (15:38→18:38)
[2019-01-03] MEDS ORDERED: ROCURONIUM BROMIDE 10 MG/ML 5 ML VIAL ONE (15:38)
[2019-01-03] MEDS ORDERED: MIDAZOLAM HCL 1 MG/ML 2ML VIAL ONE (15:38)
[2019-01-03] MEDS ORDERED: GLUCAGON FOR INJ 1 MG VIAL IM PRN (16:00)
[2019-01-03] MEDS ORDERED: GLUCOSE 10 TABS/TUBE PO PRN (16:00)
[2019-01-03] MEDS ORDERED: DEXTROSE 50% 50 ML SYRINGE IV PRN (16:00)
[2019-01-03] MEDS ORDERED: CARBOHYDRATES FOR HYPOGLYCEMIA PO PRN (16:00)
[2019-01-03] MEDS ORDERED: GLUCOSE 40% GEL 15 GM TUBE PO PRN (16:00)
[2019-01-03] MEDS ORDERED: PROPOFOL IV EMULSION 10 MG/ML 20 ML VIAL IV ONE (16:01)
[2019-01-03] MEDS ORDERED: LIDOCAINE HCL 2% 2 ML VIAL/AMP(20MG/ML) INFIL ONE (16:01)
[2019-01-03] MEDS ORDERED: SUCCINYLCHOLINE CHLORIDE 20 MG/ML 10 ML VIAL ONE (16:01)
[2019-01-03] MEDS ORDERED: POVIDONE-IODINE OP SOLN 30 ML BTL ONE (16:06)
--- NOTE | 2019-01-03 16:12 | Pharmacy Report ---
Glycemic Control Consultation - Date of Service January 03, 2019 - Scope Scope: Glycemic Pharmacist consulted by Dr Savage on 01-02 for glycemic control and to write orders per [facility] inpatient glycemic control protocol - Objective Weight: 144.515 kg Accuchecks BSG (last 24hrs): 01/02/19 01/02/19 01/03/19 17:07 20:51 00:05 POC Glucose 77 114 H 111 H 01/03/19 01/03/19 01/03/19 05:44 12:05 15:33 POC Glucose 101 H 93 79 - Recent Pertinent Medications Outpatient Anti-diabetic Regimen: * Lantus 34 units BID, Janumet * A1c = ordered for 01/04 Risk Factors for Insulin Resistance: * Steroids: unsure - currently in surgery * Diet: NPO - Assessment & Plan Assessment & Plan: ASSESSMENT: * 68 year old female in for surgery of her shoulder/drainage of abscess. NPO since admission. * Confirmed with patient she took Lantus 17 units prior to admission (which is half of her AM dosing of Lantus). Also confirmed she is on Lantus 34 units BID with patient. She states that she does have lower BSGs in the 100s on this dosing. * Received total of 27 units of insulin yesterday, of which 17 were basal insulin * BSGs trending down yesterday to 77 mg/dL - however was started on a diet, but then changed back to NPO last evening * Fasting AM BSG lower at 101 mg/dL - recheck later this am 93 mg/dL ; will hold Lantus this morning and add scale for tonight * Patient currently in OR for shoulder drainage - BSG prior to OR down to 79 mg/dL * Will reassess postop op to determine if steroids given - may need to add overnight checks PLAN FOR INPATIENT GLYCEMIC CONTROL: * Basal insulin - plan to cut back Lantus pretty significantly (17 units 01/02 even if dinner was too much, decrease ~50%) * Lantus scale HS -for BSG < 160 - no Lantus -for BSG > 160 Lantus 10 units * Bolus insulin * NovoLog per scale ACHS or Q6hrs while NPO * Goal Range: Low 110 mg/dL - High 140 mg/dL * Correction Factor: 15 mg/dL/unit * Nutritional / Prandial insulin per carb ratio of 1 unit per 5 grams CHO consumed * Please note that the plan above was derived based on current level of insulin resistance and hospital stress. These recommendations are appropriate for inpatient admission only. Plan of care upon discharge will need to be reassessed to avoid potential outpatient hypo/hyperglycemia. Thank you.
[2019-01-03] MEDS ORDERED: BACITRACIN INJ 50,000 UNIT VIAL ONE (16:21)
--- NOTE | 2019-01-03 16:32 | Orthopedic Progress Note ---
Date of Service January 03, 2019 Assessment & Plan (1) Prosthetic shoulder infection: We will take her down to the OR later today for an I&D and poly-exchange of her right shoulder. Postoperatively she will be placed on IV antibiotics and infectious disease will be consulted as well as the internal medicine team. I want to make sure her sugars are well controlled moving forward. Present on Admission?: Yes Subjective Macy was seen and examined at bedside today. Overall she is doing fairly well. She is not having too much pain in the shoulder at this point. She is been on the oral Augmentin. She has no new complaints. Physical Exam Musculoskeletal: On physical examination of the right shoulder, she still has an outpouching in the area of the incision. The redness is down a little bit. She is neurovascular intact. Still has a lot of soreness in her shoulder which is new over the past few weeks. Results & Data Vital Signs (Past 12 Hours) Vital Signs Temp Pulse Resp BP Pulse Ox 01/03/19 15:24 36.8 C 78 18 123/51 L 97 01/03/19 15:14 36.7 C 79 16 113/53 L 96 01/03/19 07:30 36.5 C 69 18 113/68 97
[2019-01-03] MEDS ORDERED: DAKIN'S SOLN 0.25% HALF STRENGTH 473ML BTL EXT SCH (17:30)
--- NOTE | 2019-01-03 17:35 | Operative Report ---
Post Operative Report Pre & Post Diagnosis Operation Date: 01/02/19 14:50 <No data on this case meets the specified criteria> Operation Date: 01/03/19 08:50 Pre-Op Diagnosis: Large anterior abscess of the right shoulder with possible deep periprosthetic infection Post-Op Diagnosis: Large anterior abscess of the right shoulder without deep joint infection Procedure Operation Date: 01/02/19 14:50 <No data on this case meets the specified criteria> Operation Date: 01/03/19 08:50 Actual Procedures p Right Shoulder Abscess Incision and Drainage(Right) - Daniel Savage DO Surgeon Daniel Savage DO Tumbling Machine Operator Daniel Sotelo PAC Estimated Blood Loss 5 Findings Consistent with Post-Op Diagnosis Specimens Cultures of the abscess Complications none Disposition Disposition: Recovery Room Indications Macy is a 68-year-old female who underwent a reverse right shoulder arthroplasty about 10 months ago. She was doing very well with her shoulder for about 9 months and not having any pain or issues. Unfortunately she became n oncompliant with her diabetic medications and her hemoglobin A1c ming to 11.7. She had issues with cellulitis of her legs and then sepsis. She was at [facility] over the past 2 weeks being treated for the sepsis. She then noticed a an abscess on the anterior aspect of her right shoulder. It was right behind the incision from a reverse shoulder replacement. She was having a lot of pain at that abscess as well. Her infection markers were all elevated. We elected to proceed with an I&D the abscess with possible component exchange of the shoulder if I felt the infection went deep. Description of Procedure On January 03 she was brought in from the hospital room to the preoperative holding area. The operative extremities identified and signed. She was given a right interscalene nerve block. She was taken back to the operating room and laid on table supine position. She was put under general anesthesia. The right shoulder was then prepped and draped in sterile fashion. A timeout was done. The patient and the operative extremity was properly identified. The previous deltopectoral incision was opened. A large copious amount of purulent drainage came directly from the abscess between the deltoid fascia and the sub-cutaneous tissue. This abscess was cultured. The abscess was then irrigated extensively with 3 L of normal saline solution. There was no evidence of any tract that went to the shoulder joint. With her asleep I easily had full range of motion of her shoulder. It did not feel as if any of the infection went deep. Given her current health, I do not feel that dissecting down to the prosthesis would be in her best interest. I do think that evacuating this abscess will take care of this her symptoms. The surrounding capsule of the abscess was debrided. Was once again irrigated with normal saline solution. I then did a 3-minute Betadine lavage. The deep subcutaneous layer was closed down with some PDS suture the skin was then closed with nylon suture in mattress fashion. A Phylicia VAC dressing was applied. She was then extubated and transferred to a [facility]. She was taken to the postanesthesia care unit in stable condition. She tolerated the procedure well. I attest to the content of the Intraoperative Record and any orders documented therein. Any exceptions are noted below.
[2019-01-03] MEDS: GABAPENTIN 300 MG CAP PO SCH ×2 (17:38→21:25)
[2019-01-03] MEDS: LACTOBACILLUS ACIDOPHILUS (FLORANEX) TAB PO SCH (17:38)
[2019-01-03] MEDS: ATENOLOL 25 MG TABLET PO SCH (17:38)
--- NOTE | 2019-01-03 18:24 | Anesthesiology Progress Note ---
Date of Service January 03, 2019 Anesthesia Post Procedure Vital Signs Vital Signs: Temp Pulse Pulse Resp BP Pulse Ox 01/03/19 18:15 100 H 22 136/47 L 95 01/03/19 18:05 97 H 21 134/50 L 98 01/03/19 17:55 100 H 15 123/55 L 97 01/03/19 17:48 36.5 C 105 H 15 137/65 98 01/03/19 15:24 36.8 C 78 18 123/51 L 97 01/03/19 15:14 36.7 C 79 16 113/53 L 96 01/03/19 07:30 36.5 C 69 18 113/68 97 01/02/19 23:02 37.1 C 90 16 120/74 93 Pain Intensity Right Shoulder: Pain Intensity: 0 Notes Mental Status: alert / awake / arousable Patient Amnestic to Procedure: Yes Nausea / Vomiting: adequately controlled Pain: adequately controlled Airway Patency, RR, SpO2: stable & adequate BP & HR: stable & adequate Hydration State: stable & adequate Anesthetic Complications: no major complications apparent and Pt Satisfied with anesthetic care Notes: The patient is awake and stable.
[2019-01-03] MEDS ORDERED: METOPROLOL TARTRATE 1 MG/ML VIAL IV ONE (18:25)
[2019-01-03] MEDS ORDERED: METOPROLOL TARTRATE 1 MG/ML VIAL IV STA (18:25)
[2019-01-03] MEDS ORDERED: HYDROmorphone INJ 1 MG/ML SYRINGE IV PRN (18:38)
[2019-01-03] MEDS ORDERED: LABETALOL HCL IV 5 MG/ML 20ML IV PRN (18:38)
[2019-01-03] MEDS ORDERED: fentaNYL citrate 100 MCG/2 ML VIAL IV PRN (18:38)
[2019-01-03] MEDS ORDERED: ONDANSETRON INJ 2 MG/ML 2 ML VIAL IV PRN (18:38)
[2019-01-03] MEDS ORDERED: PHENYLEPHRINE 100MCG/ML 5ML SYR IV PRN (18:38)
[2019-01-03] MEDS ORDERED: ATROPINE SULFATE 0.1 MG/ML 10ML SYR IV PRN (18:38)
[2019-01-03] MEDS ORDERED: ePHEDrine sulfate 50 MG/ML AMP IV PRN (18:38)
[2019-01-03] MEDS ORDERED: BISACODYL 10 MG SUPP PR PRN (19:16)
[2019-01-03] MEDS ORDERED: MAGNESIUM HYDROXIDE SUSP 30 ML UDC PO PRN (19:16)
[2019-01-03] MEDS ORDERED: NALOXONE HCL 0.4 MG/1 ML VIAL/CARP IV PRN (19:16)
[2019-01-03] MEDS: OXYCODONE/ACETAMINOPHEN 5mg/325mg TAB PO PRN ×2 (19:30→23:29)
[2019-01-03] MEDS: SODIUM CHLORIDE 0.9% 1000ML 1,000 ML IV SCH ×3 (20:00→21:22)
[2019-01-03] MEDS ORDERED: Nursing to Pharmacy Communication ONE (20:07)
[2019-01-03] MEDS ORDERED: LANTUS PER UNIT CHARGE SQ SCH (21:00)
[2019-01-03] MEDS: cefTRIAXone SODIUM 2,000 MG in DEXTROSE 5% 50 ML IV SCH (21:20)
[2019-01-03] MEDS: DOCUSATE SODIUM 100 MG CAP PO SCH (21:24)
[2019-01-03] MEDS: SENNA 8.6 MG TAB PO SCH (22:02)
[2019-01-04] MEDS: OXYCODONE/ACETAMINOPHEN 5mg/325mg TAB PO PRN ×3 (03:40→21:09)
[2019-01-04] MEDS: LEVOTHYROXINE SODIUM 25 MCG TABLET PO SCH (06:11)
--- NOTE | 2019-01-04 07:22 | Orthopedic Progress Note ---
Date of Service January 04, 2019 Assessment & Plan (1) Abscess of right shoulder: Overall Macy is doing much better. She just had a superficial abscess of her right shoulder. There was not any tracking to the the prosthesis so that the prosthesis was not opened up or washed out. She has good range of motion of her shoulder and not much pain. The hospitalist has been consulted for medical optimization while she fights off the infection. She is currently on Rocephin 2 g IV every 24 hours for antibiotic treatment. Infectious disease has been consulted as well. Physical therapy and Occupational Therapy will also see her for range of motion exercises with her shoulder. We are still waiting for abscess cultures to come back. Present on Admission?: Yes Subjective Macy was seen and examined at bedside this morning. Overall she is feeling much better. She says her shoulder hurts her much less than it did before the surgery. She is happy with her progress. She was able to get some sleep last night. She has no complaints. Physical Exam Musculoskeletal: On physical examination of the right shoulder, the Phylicia V AC dressing is to suction. She is neurovascularly intact. She is wearing her sling as instructed. Results & Data Vital Signs (Past 12 Hours) Vital Signs Temp Pulse Resp BP Pulse Ox 01/04/19 07:14 36.3 C L 61 16 107/61 97 01/04/19 03:37 91 01/04/19 03:00 36.4 C L 79 18 125/73 93 01/03/19 23:36 36.8 C 86 16 114/67 96 01/03/19 22:10 36.7 C 88 16 109/57 L 93 01/03/19 21:10 88 16 105/55 L 90 01/03/19 20:10 92 H 16 92/52 L 90 01/03/19 19:37 36.9 C 89 20 104/56 L 97 01/03/19 19:21 37 C 91 H 18 132/73 93
[2019-01-04 08:28] LABS: Estimated Average Glucose 214 mg/dl; Hemoglobin A1C 9.1 % (4.5-5.6)
[2019-01-04] MEDS: DOCUSATE SODIUM 100 MG CAP PO SCH ×2 (08:31→21:05)
[2019-01-04] MEDS: MULTIVITAMIN TAB PO SCH (08:31)
[2019-01-04] MEDS: LACTOBACILLUS ACIDOPHILUS (FLORANEX) TAB PO SCH (08:32)
[2019-01-04] MEDS: ATENOLOL 25 MG TABLET PO SCH (08:32)
[2019-01-04] MEDS: FUROSEMIDE 20 MG TAB PO SCH ×2 (08:32→16:57)
[2019-01-04] MEDS: GABAPENTIN 300 MG CAP PO SCH ×2 (08:32→21:05)
[2019-01-04] MEDS: INSULIN ASPART 100 UNITS/ML 3 ML PEN SC SCH ×5 (08:35→23:07)
--- NOTE | 2019-01-04 08:40 | Hospitalist Progress Note ---
Date of Service January 04, 2019 Assessment & Plan (1) Atrial fibrillation: atenolol with rate control is evidence (2) Diabetes mellitus: typically takes janumet, basal bolus insulin Does take gabapentin likely for neuropathic pain (3) Aortic stenosis: lasix 40 twice daily does not appear to be in any failure at this time because of audible murmur on exam Subjective Patient is good pain control postoperatively she is no chest discomfort or shortness of breath she is essential tremor awaiting operative cultures for final antibiotic choices Review of Systems Review of Systems: ROS: well nourished well developed. No double vision blurry vision No problems with speech or swallowing No palpitations, chest pain or pressure No Wheezing or breathing issues No abdominal pain nausea vomiting diarrhea No burning urine urine frequency or changes in color Right shoulder pain wound VAC is in place No skin rashes or oral lesions No unusual bruising or bleeding No focused back pain or numbness or loss of strength No changes in memory or confusion Physical Exam Physical Exam: The patient appeared well nourished and normally developed. Vital signs as documented. Head exam is unremarkable. normocephalic, atraumatic Neck is without jugular venous distension, thyromegaly, or lymphademopathy Lungs are clear to auscultation and percussion. Cardiac exam reveals Rhythm is regular. Systolic ejection murmur is heard first and second heart sounds normal. Abdominal exam reveals normal bowel sounds, no masses, no organomegaly Extremities are nonedematous wound VAC is in place on her right shoulder she is tender to movement of her right shoulder Neurologic exam is A&Ox3, no focal deficits, does have visible tremor which she says is essential tremor his tremors both with rest and with intention Psychologically seems neither anxious or depressed Skin is warm Dry without bruises or lesions Results & Data Vital Signs (Past 12 Hours) Vital Signs Temp Pulse Resp BP Pulse Ox 01/04/19 07:14 36.3 C L 61 16 107/61 97 01/04/19 03:37 91 01/04/19 03:00 36.4 C L 79 18 125/73 93 01/03/19 23:36 36.8 C 86 16 114/67 96 01/03/19 22:10 36.7 C 88 16 109/57 L 93 01/03/19 21:10 88 16 105/55 L 90
[2019-01-04 09:12] LABS: Basophils # (auto) 0.04 K/uL (0-0.2); Basophils % (auto) 0.7 %; Eosinophils # (auto) 0.14 K/uL (0-0.5); Eosinophils % (auto) 2.5 %; Hematocrit (blood only) 31.4 % (37-47); Hemoglobin 9.8 g/dL (12.0-16.0); Immature Granulocytes # (auto) 0.01 K/uL (0.00-0.02); Immature Granulocytes % (auto) 0.2 %; Lymphocytes # (auto) 1.02 K/uL (1.2-3.4); Lymphocytes % (auto) 18.3 %; Mean Corpuscular Hgb Conc 31.2 g/dL (32-36); Mean Corpuscular Volume 94.3 fL (80-100); Mean Platelet Volume 10.4 fL (7.4-10.4); Monocytes # (auto) 0.77 K/uL (0.11-0.59); Monocytes % (auto) 13.8 %; Neutrophils # (auto) 3.59 K/uL (1.4-6.5); Neutrophils % (auto) 64.5 %; Platelet Count 139 K/uL (130-400); RDW Coefficient of Variation 17.2 % (11.5-14.5); RDW Standard Deviation 58.5 fL (36.4-46.3); Red Blood Count 3.33 M/uL (4.2-5.4); White Blood Count 5.57 K/uL (4.8-10.8)
[2019-01-04 09:19] LABS: BUN Creatinine Ratio 18.7 (10-20); Calcium 8.3 mg/dl (8.5-10.1); Creatinine Clr Calc Pharmacy 95.5 ml/min; Est GFR (Non-African American) 79.3; Potassium 3.9 mmol/L (3.5-5.1)
--- NOTE | 2019-01-04 10:04 | Anesthesiology Progress Note ---
Date of Service January 04, 2019 Anesthesia Post Procedure Vital Signs Vital Signs: Temp Pulse Pulse Pulse Resp BP BP 01/04/19 07:14 36.3 C L 61 16 107/61 01/04/19 03:37 01/04/19 03:00 36.4 C L 79 18 125/73 01/03/19 23:36 36.8 C 86 16 114/67 01/03/19 22:10 36.7 C 88 16 109/57 L 01/03/19 21:10 88 16 105/55 L 01/03/19 20:10 92 H 16 92/52 L 01/03/19 19:37 36.9 C 89 20 104/56 L 01/03/19 19:21 37 C 91 H 18 132/73 01/03/19 18:55 36.6 C 89 23 129/60 01/03/19 18:45 89 20 134/59 L 01/03/19 18:35 90 19 127/59 L 01/03/19 18:28 95 H 146/51 H 01/03/19 18:25 99 H 22 146/51 H 01/03/19 18:15 100 H 22 136/47 L 01/03/19 18:05 97 H 21 134/50 L 01/03/19 17:55 100 H 15 123/55 L 01/03/19 17:48 36.5 C 105 H 15 137/65 01/03/19 15:24 36.8 C 78 18 123/51 L 01/03/19 15:14 36.7 C 79 16 113/53 L Pulse Ox 01/04/19 07:14 97 01/04/19 03:37 91 01/04/19 03:00 93 01/03/19 23:36 96 01/03/19 22:10 93 01/03/19 21:10 90 01/03/19 20:10 90 01/03/19 19:37 97 01/03/19 19:21 93 01/03/19 18:55 98 01/03/19 18:45 92 01/03/19 18:35 95 01/03/19 18:28 01/03/19 18:25 96 01/03/19 18:15 95 01/03/19 18:05 98 01/03/19 17:55 97 01/03/19 17:48 98 01/03/19 15:24 97 01/03/19 15:14 96 Pain Intensity Right Shoulder: Pain Intensity: 5 Notes Mental Status: alert / awake / arousable and participated in evaluation Nausea / Vomiting: adequately controlled Pain: adequately controlled Airway Patency, RR, SpO2: stable & adequate BP & HR: stable & adequate Hydration State: stable & adequate
--- NOTE | 2019-01-04 11:39 | Infectious Disease Consult ---
Date of Consultation January 04, 2019 Assessment & Plan (1) Abscess of right shoulder: Patient with what appears to be superficial abscess of right shoulder now status post I&D and wound VAC placement, no obvious involvement of prosthesis. Patient to continue on IV ceftriaxone pending final culture results. Length of IV antibiotics will be determined by clinical response. Will follow. History of Present Illness Reason for Consultation: Right shoulder abscess Attending Physician: Daniel Savage DO History of Present Illness 68-year-old female with diabetes mellitus underwent right shoulder replacement approximately 10 months ago. Reportedly did reasonably well, but earlier this year was hospitalized with severe cellulitis involving the legs and abdominal wall. Was treated with IV and oral antibiotics, subsequently developed pain and swelling of the right shoulder and found to have abscess. Was admitted to the hospital is now undergone surgical debridement with finding of what appears to be superficial infection. Gram stain of operative specimen negative for organisms, culture is pending. Patient currently being treated with IV ceftriaxone which he is tolerating without apparent difficulty. No reported fever or chills. Pain currently 4 out of 10 in intensity right shoulder. Allergies Allergy/AdvReac Type Severity Reaction Status Date / Time latex Allergy Unknown DRY Cough, Verified 01/02/19 12:56 HIVES, RASH prednisone AdvReac Unknown elevated Verified 01/02/19 12:56 LFT Home Medications Home Medications Medication Instructions Recorded Confirmed Type Lactobacillus acidophilus 1 cap PO QAM 01/01/19 01/02/19 History [Probiotic Acidophilus] amoxicillin-pot clavulanate 1 tab PO Q12H 01/01/19 01/02/19 History [Augmentin] atenolol 25 mg PO QAM 01/01/19 01/02/19 History furosemide 40 mg PO BID 01/01/19 01/02/19 History gabapentin 300 mg PO BID 01/01/19 01/02/19 History insulin glargine [Lantus U-100 17 unit SUBCUT BID 01/01/19 01/02/19 History Insulin] levothyroxine [Synthroid] 25 mcg PO QAM 01/01/19 01/02/19 History sitagliptin-metformin [Janumet] 1 tab PO BID 01/01/19 01/02/19 History Patient History Medical History Essential tremor Morbid obesity Diabetes mellitus IDDM Aortic stenosis MODERATE (OSEI 1.1CM2, MEAN GRADIENT 25MMHG) PER 12/2018 ECHO Osteoarthritis Rotator cuff arthropathy of right shoulder Cellulitis (Acute) Atrial fibrillation ?NEW ONSET A. 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 Thrombocytopenia CHRONIC FELT 2/2 CIRRHOSIS Surgical History History of esophagogastroduodenoscopy (EGD) History of total right knee replacement History of total replacement of right shoulder joint History of total replacement of left shoulder joint PARTIAL History of total left knee replacement History of cholecystectomy History of cardiac cath 2014= NO STENTS History of colonoscopy History of cystoscopy WITH KIDNEY STONE BASKETING/REMOVAL Family History Aunt Family history of diabetes mellitus Mother Family history of diabetes mellitus Social History Preferred Language: Filipino Communication Ability: Effective Unit Tender Required: No Beliefs That Will Affect Care: None Current Living Situation: Alone Other Information That Helps Us Care for You: No Feels Safe at Home: Yes Safety Concerns: Feels Safe At This Time Smoking Status: Never smoker Do You Dip or Chew Tobacco: No Second Hand Exposure: No Tobacco Cessation Education Requested by Patient: No Hx Alcohol Use: No Hx Substance Use: No Review of Systems Review of Systems: All systems reviewed & are unremarkable except as noted in HPI & below Physical Exam Constitutional: WD/WN, vitals as above comfortable; no acute distress Eyes: PERRL, conjunctivae normal, anicteric sclerae ENMT: external ear and nose normal, oropharynx normal Neck: trachea midline, no thyromegaly neck nontender Respiratory: normal respiratory effort, lungs clear to auscultation normal percussion; does not use accessory muscles Cardiovascular: Rate/Rhythm: regular rate and regular rhythm Heart Sounds: normal S1 and normal S2; no gallop, no murmur and no cardiac rub Vessels: normal peripheral pulses; no JVD Gastrointestinal (Abdomen): normal bowel sounds, soft, nontender, no hepatosplenomegaly Musculoskeletal: no cyanosis or clubbing, extremities motor strength 5/5 Spine: thoracic spine normal to inspection and lumbar spine normal to inspection; no cervical spinal tenderness Skin: no rashes, warm and dry normal turgor Wound VAC in place right shoulder Neurologic: patellar DTR's 2+ bilat, sensation intact no focal motor deficits Motor/Sensory: + tremor Psychiatric: A+Ox3, euthymic affect Orientation: cooperative Lymphatic: no cervical or axillary lymphadenopathy no inguinal lymphadenopathy Results & Data Vital Signs (Past 12 Hours) Vital Signs Temp Pulse Resp BP Pulse Ox 01/04/19 07:14 36.3 C L 61 16 107/61 97 01/04/19 03:37 91 01/04/19 03:00 36.4 C L 79 18 125/73 93 Laboratory Results Short CBC 01/04/19 Range/Units 05:43 WBC 5.57 (4.8-10.8) K/uL Hgb 9.8 L (12.0-16.0) g/dL Hct 31.4 L (37-47) % Plt Count 139 (130-400) K/uL BMP 01/04/19 05:43 Sodium 140 Potassium 3.9 Chloride 106 Carbon Dioxide 32 BUN 14 Creatinine 0.77 Glucose 130 H Calcium 8.3 L Diagnostic Findings Microbiology 01/03/19 17:07 Shoulder,Right Gram Stain - Final
[2019-01-04] MEDS: AMOXICILLIN/CLAVULANATE 500 MG TAB PO SCH (15:13)
[2019-01-04] MEDS: cefTRIAXone SODIUM 2,000 MG in DEXTROSE 5% 50 ML IV SCH (19:37)
[2019-01-04] MEDS: SENNA 8.6 MG TAB PO SCH (21:06)
[2019-01-04] MEDS: INSULIN GLARGINE SOLOSTAR 100 UNITS/ML 3 ML PEN SC SCH (21:13)
[2019-01-05] MEDS: LEVOTHYROXINE SODIUM 25 MCG TABLET PO SCH (05:59)
[2019-01-05] MEDS: OXYCODONE/ACETAMINOPHEN 5mg/325mg TAB PO PRN (07:27)
[2019-01-05] MEDS: DOCUSATE SODIUM 100 MG CAP PO SCH ×2 (07:29→20:47)
[2019-01-05] MEDS: FUROSEMIDE 20 MG TAB PO SCH ×2 (07:29→18:37)
[2019-01-05] MEDS: LACTOBACILLUS ACIDOPHILUS (FLORANEX) TAB PO SCH (07:29)
[2019-01-05] MEDS: ATENOLOL 25 MG TABLET PO SCH (07:30)
[2019-01-05] MEDS: MULTIVITAMIN TAB PO SCH (07:30)
[2019-01-05] MEDS: GABAPENTIN 300 MG CAP PO SCH ×2 (07:30→20:47)
[2019-01-05] MEDS: INSULIN ASPART 100 UNITS/ML 3 ML PEN SC SCH ×4 (07:34→20:48)
--- NOTE | 2019-01-05 10:22 | Pharmacy Report ---
Pharmacy Glycemic Short Note 2 - Date of Service January 05, 2019 - Glycemic Short BSG Results (Last 24 hours): 01/04/19 01/04/19 01/04/19 12:13 17:04 20:46 POC Glucose 125 H 109 H 145 H 01/05/19 06:29 POC Glucose 107 H OUTPATIENT ANTIDIABETIC REGIMEN: * Lantus 34 units SC BID * Janumet 50/1000mg po BID * HbA1c 9.1% on 01/04/19 ASSESSMENT: * 68 yo F with T2DM with poor control as outpatient per recent HbA1c admitted with shoulder abscess. * Suspect non-adherence as an outpatient as BSG's yesterday were very well controlled and patient received a total of 38 units of insulin (as compared to home total daily dose of 68 units) * BSG's ranged 109-145 mg/dL yesterday. Current therapy appropriate * Stressors stable PLAN FOR INPATIENT GLYCEMIC CONTROL: * Hold outpatient oral diabetes medications * Basal insulin: Lantus qPM based on BSG * 10 units for BSG < 180 mg/dL * 15 units for BSG >= 180 mg/dL * Bolus insulin * NovoLog per scale ACHS or Q6hrs while NPO * Goal Range: Low 110 mg/dL - High 140 mg/dL * Correction Factor: 15 mg/dL/unit * Nutritional / Prandial insulin per carb ratio of 1 unit per 5 grams CHO consumed
[2019-01-05] MEDS: CLOTRIMAZOLE/BETAMETHASONE CR 15 GM TUBE EXT SCH ×2 (12:45→20:47)
--- NOTE | 2019-01-05 15:56 | Hospitalist Progress Note ---
Date of Service January 05, 2019 Assessment & Plan (1) Atrial fibrillation: Rate controlled, continue atenolol (2) Diabetes mellitus: Uncontrolled diabetes A1c 9.1, today's blood glucose around 130, typically takes janumet, basal bolus insulin Does take gabapentin likely for neuropathic pain, will continue (3) Aortic stenosis: lasix 40 twice daily does not appear to be in any failure at this time because of audible murmur on exam (4) Abscess of right shoulder: Patient cleared by primary team, (5) Anemia: Hemoglobin from 11 dropped to 9.8, possible from delusional OR DUE TO acute blood loss from the procedure, will follow up, Subjective Sitting on chair, pleasant conversational, right anterior shoulder in dressing and wound vacs, no complaint, denies fever and chill, has been eating drinking well, bilateral lower extremity 2-3+ edema, Review of Systems Review of Systems: All systems reviewed & are unremarkable except as noted in HPI & below Physical Exam Physical Exam: General Appearance: Obesity, WD/WN, no apparent distress, Eyes: normal inspection, PERRL, EOMI, sclerae normal ENT: normal ENT inspection, hearing grossly normal, pharynx normal Neck: supple, no adenopathy, thyroid normal, no JVD, no carotid bruits, trachea midline Respiratory/Chest: chest non-tender, decreased breath sounds, no respiratory distress, no accessory muscle use, breath sounds, rales, wheezing Cardiovascular: regular rate, rhythm, no JVD, no murmur Abdomen: normal bowel sounds, non tender, soft, no organomegaly, Extremities: 3+ pedal edema, no calf tenderness, joint has no limited range of motion, capillary refill is normal, no cyanosis clubbing Neurologic/Psychiatric: celluloid trimmer II-XII nml as tested, no motor/sensory deficits, alert, normal mood/affect, oriented x 3 Skin: normal color, warm/dry, no rash Lymphatic: no adenopathy Results & Data Vital Signs (Past 12 Hours) Vital Signs Temp Pulse Resp BP Pulse Ox 01/05/19 15:02 36.8 C 57 L 16 103/47 L 96 01/05/19 06:23 36.5 C 63 14 126/57 L 98 Laboratory Results - last 24 hr 01/04/19 01/04/19 01/05/19 17:04 20:46 06:29 POC Glucose 109 H 145 H 107 H 04/21/19 11:55 POC Glucose 166 H Microbiology 01/03/19 17:07 Shoulder,Right Gram Stain - Final 01/03/19 17:07 Shoulder,Right Aerobic and Anaerobic Culture - Preliminary No growth to date.
--- NOTE | 2019-01-05 19:50 | Orthopedic Progress Note ---
Date of Service January 05, 2019 Assessment & Plan (1) Abscess of right shoulder: Overall she is doing as well as expected. She is not having much pain in the shoulder at this point. She is continuing the IV Rocephin. Infectious disease wants to see how she does clinically before they determine final antibiotic regimen. The hospitalist group is currently working to get her glucose under control. Her most recent A1c was above 9. She can discontinue the arm sling. She can be full weightbearing as tolerated on her shoulder.Once she is medically stable and once infectious disease has her final recommendations she can be discharged home. Present on Admission?: Yes Subjective Macy was seen and examined at bedside today. Overall she is doing fairly well. She is not having much pain in the right shoulder. She is been displaying well with physical therapy. She has no complaints. Physical Exam Musculoskeletal: On physical examination of the right shoulder, the Phylicia VAC dressing is to suction. Her radial, median, and ulnar nerves are checked and intact at the wrist. There is no significant redness around the previous abscess site. Results & Data Vital Signs (Past 12 Hours) Vital Signs Temp Pulse Resp BP Pulse Ox 01/05/19 15:02 36.8 C 57 L 16 103/47 L 96
[2019-01-05] MEDS: cefTRIAXone SODIUM 2,000 MG in DEXTROSE 5% 50 ML IV SCH (19:53)
[2019-01-05] MEDS: SENNA 8.6 MG TAB PO SCH (20:47)
[2019-01-05] MEDS: INSULIN GLARGINE SOLOSTAR 100 UNITS/ML 3 ML PEN SC SCH (20:47)
[2019-01-06] MEDS: OXYCODONE/ACETAMINOPHEN 5mg/325mg TAB PO PRN ×2 (01:55→15:54)
[2019-01-06 05:37] LABS: Basophils # (auto) 0.06 K/uL (0-0.2); Basophils % (auto) 1.3 %; Eosinophils # (auto) 0.18 K/uL (0-0.5); Eosinophils % (auto) 3.8 %; Hematocrit (blood only) 30.6 % (37-47); Hemoglobin 9.6 g/dL (12.0-16.0); Lymphocytes % (auto) 25.3 %; Mean Corpuscular Hgb Conc 31.4 g/dL (32-36); Mean Corpuscular Volume 93.9 fL (80-100); Monocytes # (auto) 0.77 K/uL (0.11-0.59); Monocytes % (auto) 16.2 %; Neutrophils # (auto) 2.53 K/uL (1.4-6.5); Neutrophils % (auto) 53.4 %; Platelet Count 138 K/uL (130-400); RDW Standard Deviation 56.9 fL (36.4-46.3); Red Blood Count 3.26 M/uL (4.2-5.4); White Blood Count 4.74 K/uL (4.8-10.8)
[2019-01-06 05:54] LABS: BUN Creatinine Ratio 16.1 (10-20); Creatinine Clr Calc Pharmacy 89.6 ml/min; Est GFR (African American) 85.2; Est GFR (Non-African American) 73.5; Magnesium 1.8 mg/dl (1.8-2.4); Potassium 3.5 mmol/L (3.5-5.1)
[2019-01-06] MEDS: LEVOTHYROXINE SODIUM 25 MCG TABLET PO SCH (06:07)
[2019-01-06] MEDS: LACTOBACILLUS ACIDOPHILUS (FLORANEX) TAB PO SCH (07:46)
[2019-01-06] MEDS: DOCUSATE SODIUM 100 MG CAP PO SCH (07:46)
[2019-01-06] MEDS: FUROSEMIDE 20 MG TAB PO SCH ×2 (07:46→16:52)
[2019-01-06] MEDS: GABAPENTIN 300 MG CAP PO SCH (07:47)
[2019-01-06] MEDS: CLOTRIMAZOLE/BETAMETHASONE CR 15 GM TUBE EXT SCH (07:47)
[2019-01-06] MEDS: MULTIVITAMIN TAB PO SCH (07:47)
[2019-01-06] MEDS: ATENOLOL 25 MG TABLET PO SCH (07:48)
[2019-01-06] MEDS: INSULIN ASPART 100 UNITS/ML 3 ML PEN SC SCH ×3 (07:51→17:49)
--- NOTE | 2019-01-06 09:26 | Cardiology Progress Note ---
Date of Service January 06, 2019 Assessment & Plan (1) Atrial fibrillation: She reportedly had atrial fibrillation during her hospitalization for sepsis recently, she seemed to have been aware of it based on symptoms of a rapid heart rate, she recalls being on heparin and she was not sent home on anticoagulants. Although I do not have details regarding the atrial arrhythmia it seems that it was not felt to be a long-standing issue. Should she develop recurrent atrial fibrillation it will need to be addressed, for the time being I would not do anything regarding this arrhythmia. (2) Aortic stenosis: She has aortic stenosis which is graded as moderate with a valve area of 1.1 and a valve gradient of 25 mmHg by echocardiography recently in [place]. This will need to be followed over the long run. (3) Mitral regurgitation: She has audible mitral regurgitation on exam, it does not seem to be mentioned in the echo report so I suspect it is not severe. He does report mild mitral stenosis. This should also be followed over the long run. (4) RBBB: She has a long-standing right bundle branch block, her electrocardiogram today is no different than it was several years ago or recently. This does not require further evaluation unless symptomatic. (5) Encounter for pre-operative examination: Although I only saw her for preop evaluation she does have some cardiac issues which need long-term follow-up. She lives in [place] and did see office machine technician down there for preop evaluation, she does need to have long-term follow-up for her valvular heart disease and possibly her paroxysmal atrial fibrillation. She can follow-up in [place] or she can make arrangements to be seen here. I think a six-month appointment would be sufficient. Subjective She feels well today, minor right shoulder stiffness, no other complaints. No cardiovascular complaints. Physical Exam Physical Exam: Constitutional: Alert, cooperative and in no distress. She is obese. Neck: No jugular venous distention, carotid pulses are normal and equal bilaterally without bruits. Pulmonary: Clear to auscultation bilaterally. Cardiac: Regular rhythm with a grade 2/6 crescendo decrescendo murmur at the base with little radiation to the carotids, a grade 3/6 holosystolic murmur at the apex, no gallop or rub. Extremities: +2 bilateral pedal edema. Erythema of her distal extremities. Skin: No rash, ecchymoses or petechiae. Results & Data Vital Signs (Past 12 Hours) Vital Signs Temp Pulse Pulse Pulse Resp BP Pulse Ox 01/06/19 07:59 36.8 C 89 70 57 L 16 119/71 95 01/06/19 06:49 36.8 C 70 16 119/71 95 01/05/19 23:20 37 C 68 16 114/67 98
--- NOTE | 2019-01-06 15:43 | Infectious Disease Progress Nt ---
Date of Service January 06, 2019 Assessment & Plan (1) Abscess of right shoulder: Patient with what appears to be superficial abscess of right shoulder now status post I&D and wound VAC placement, no obvious involvement of prosthesis. Given negative cultures and clinical improvement, may be able to transition to oral antibiotics in the near future, and would recommend combination of cephalexin and Bactrim, likely in the range of 2-3 weeks. Will follow. Subjective Patient seen in follow-up for right shoulder superficial abscess. Patient feeling better, pain slowly decreasing. Currently 1-2 out of 10 in intensity. Remains afebrile. Operative cultures remain no growth. No other new complaints. Review of Systems Review of Systems: All systems reviewed & are unremarkable except as noted in HPI & below Physical Exam Constitutional: WD/WN, vitals as above comfortable; no acute distress Eyes: PERRL, conjunctivae normal, anicteric sclerae ENMT: external ear and nose normal, oropharynx normal Neck: trachea midline, no thyromegaly neck nontender Respiratory: normal respiratory effort, lungs clear to auscultation normal percussion; does not use accessory muscles Cardiovascular: Rate/Rhythm: regular rate and regular rhythm Heart Sounds: normal S1 and normal S2; no gallop, no murmur and no cardiac rub Vessels: normal peripheral pulses; no JVD Gastrointestinal (Abdomen): normal bowel sounds, soft, nontender, no hepatosplenomegaly Musculoskeletal: no cyanosis or clubbing, extremities motor strength 5/5 Spine: thoracic spine normal to inspection and lumbar spine normal to inspection; no cervical spinal tenderness Skin: no rashes, warm and dry normal turgor Neurologic: patellar DTR's 2+ bilat, sensation intact no focal motor deficits Motor/Sensory: + tremor Psychiatric: A+Ox3, euthymic affect Orientation: cooperative Lymphatic: no cervical or axillary lymphadenopathy no inguinal lymphadenopa thy Results & Data Vital Signs (Past 12 Hours) Vital Signs Temp Pulse Pulse Pulse Resp BP Pulse Ox 01/06/19 15:26 36.6 C 63 17 131/69 98 01/06/19 07:59 36.8 C 89 70 57 L 16 119/71 95 01/06/19 06:49 36.8 C 70 16 119/71 95 Laboratory Results Short CBC 01/06/19 Range/Units 05:26 WBC 4.74 L (4.8-10.8) K/uL Hgb 9.6 L (12.0-16.0) g/dL Hct 30.6 L (37-47) % Plt Count 138 (130-400) K/uL BMP 01/06/19 05:26 Sodium 139 Potassium 3.5 Chloride 104 Carbon Dioxide 31 BUN 13 Creatinine 0.82 Glucose 120 H Calcium 8.0 L Diagnostic Findings Microbiology 01/03/19 17:07 Shoulder,Right Gram Stain - Final 01/03/19 17:07 Shoulder,Right Aerobic and Anaerobic Culture - Preliminary No growth to date.
[2019-01-06] MEDS: cefTRIAXone SODIUM 2,000 MG in DEXTROSE 5% 50 ML IV SCH (16:51)
--- NOTE | 2019-01-06 18:03 | Hospitalist Progress Note ---
Date of Service January 06, 2019 Assessment & Plan (1) Atrial fibrillation: Rate controlled, continue atenolol (2) Diabetes mellitus: Uncontrolled diabetes A1c 9.1, today's blood glucose around 130, typically takes janumet, basal bolus insulin Does take gabapentin likely for neuropathic pain, will continue (3) Aortic stenosis: lasix 40 twice daily does not appear to be in any failure at this time because of audible murmur on exam (4) Abscess of right shoulder: pt is taking cared by 1st team and ID, superficial abscess of right shoulder now status post I&D and wound VAC placement, no obvious involvement of prosthesis. (5) Anemia: Hemoglobin from 11 dropped to 9.8, and today si 9.6, possible from delusional OR DUE TO acute blood loss from the procedure, has advised patient to follow-up with PCP about this, Also discussed with patient that she should follow-up with PCP for all of her medical conditions after discharge, she understands agreed, Subjective has been out of bed to chair, up and walk, right shoulder incision area wound VAC in place, no obvious tender, no fever no chills no local redness or drainage, Review of Systems Review of Systems: All systems reviewed & are unremarkable except as noted in HPI & below Physical Exam Physical Exam: General Appearance: Obesity, WD/WN, no apparent distress, Eyes: normal inspection, PERRL, EOMI, sclerae normal ENT: normal ENT inspection, hearing grossly normal, pharynx normal Neck: supple, no adenopathy, thyroid normal, no JVD, no carotid bruits, trachea midline Respiratory/Chest: chest non-tender, decreased breath sounds, no respiratory distress, no rales, wheezing Cardiovascular: regular rate, rhythm, no JVD, no murmur Abdomen: normal bowel sounds, non tender, soft, no organomegaly, Extremities: 3+ pedal edema, no calf tenderness, joint has no limited range of motion, capillary refill is normal, no cyanosis clubbing Neurologic/Psychiatric: 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
--- NOTE | 2019-01-07 15:41 | Progress Note ---
DATE: 01/06/2019 CHIEF COMPLAINT: She is postop day #3 for an I&D of her right shoulder for a superficial wound abscess. SUBJECTIVE: Macy was examined at bedside today. She is doing very well. She has great range of motion and limited pain with use of her right shoulder. She has been doing well with physical therapy as well. She has no complaints at this time. OBJECTIVE: Physical examination of the right shoulder, the Prevena VAC dressing is maintaining suction. Her radial, medial and ulnar nerves are checked and intact at the wrist. There is no significant redness around the previous abscess site. ASSESSMENT DIAGNOSIS: Postoperative day #3 for I&D for superficial wound abscess of the right shoulder. PLAN: At this time, she is doing very well. We are going to discharge her to home on today's visit. We had recommendations from Dr. Kashif aM with infectious disease to send her home with p.o. antibiotic medications including cephalexin and Bactrim. Those scripts were provided for her today. She was seen by the hospitalist group and had a full discussion about her glucose control. She can discontinue the arm sling. She is full weightbearing as tolerated. We will see her back in the office in approximately 10-14 days for suture removal and evaluation. We also recommend that she follow up with Dr. Ma in 10-14 days as well. I provided her with contact information upon discharge. Please note that Dr. Colt Barnett had accompanied me during the visit and agrees upon the assessment and plan.
--- NOTE | 2019-01-08 07:56 | Discharge Summary ---
Date of Service January 08, 2019 Specialty Data Orthopedic H & H 01/04/19 01/06/19 Range/Units 05:43 05:26 Hgb 9.8 L 9.6 L (12.0-16.0) g/dL Hct 31.4 L 30.6 L (37-47) % Microbiology 01/03/19 17:07 Shoulder,Right Gram Stain - Final 01/03/19 17:07 Shoulder,Right Aerobic and Anaerobic Culture - Preliminary No growth to date. Discharge Data Consultations 01/01/19 14:20 Consult Cardiology Routine 01/03/19 19:16 Consult Case Management - Discharge Planning Routine Consult Hospitalist Routine Consult Infectious Diseases Routine Procedures Performed Operation Date: 01/02/19 14:50 <No data on this case meets the specified criteria> Operation Date: 01/03/19 08:50 Actual Procedures p Right Shoulder Abscess Incision and Drainage(Right) - Daniel Savage, DO Hospital Course (1) Abscess of right shoulder: On January 02, 2019 Macy arrived at [facility] for an I&D and possible component exchange of the right shoulder. Unfortunately there were several emergencies that came into the operating room that day and I felt it would be safer to do her washout the following day. She was admitted overnight at the hospital. The following day she was then brought down to the operating room. She underwent an I&D of an abscess of the right shoulder. There was no evidence of any deep infection or any tracking down to the deeper prosthesis. The abscess was cultured. She was started on Rocephin IV and discharged back to general orthopedic floors. Her hospital course was uneventful. On postop day #1 her H&H was stable and her pain was well controlled. She was able to participate well with physical therapy. The medicine team was working keeping her blood sugars under control. Infectious disease was consulted and they recommended continuing the Rocephin. On postop day #2 she continued to do fairly well. The abscess cultures were not showing any growth. The hospitalist continue to work on her blood sugars and we continue with the Rocephin. On postop day #3 she was doing well with her shoulder. She was not having much pain. The culture still showed no growth to date. He can be up to 2 weeks before shoulder cultures can grow out appropriate bacteria such as C. acnes. The infectious disease team felt that she was doing well enough clinically that they felt safe sending her home on oral Keflex and Bactrim for 2 weeks. She will follow-up with orthopedics in 2 weeks. She will get physical therapy while at home. She is being discharged on her home insulin. I will see her in the office in 2 to 3 weeks. Discharge Instructions Home Medications Medication Instructions Recorded Confirmed Janumet 1 tab PO BID 01/01/19 01/02/19 Lantus U-100 Insulin 17 unit SUBCUT BID 01/01/19 01/02/19 Probiotic Acidophilus 1 cap PO QAM 01/01/19 01/02/19 amoxicillin-pot clavulanate 1 tab PO Q12H 01/01/19 01/02/19 [Augmentin] atenolol 25 mg PO QAM 01/01/19 01/02/19 furosemide 40 mg PO BID 01/01/19 01/02/19 gabapentin 300 mg PO BID 01/01/19 01/02/19 levothyroxine [Synthroid] 25 mcg PO QAM 01/01/19 01/02/19 Previous Rx's Medication Instructions Recorded cephalexin 500 mg PO Q6H 14 Days #56 cap 01/06/19 sulfamethoxazole-trimethoprim 1 tab PO BID 14 Days #28 tab 01/06/19 [Bactrim DS]
--- NOTE | 2019-02-14 09:31 | Coding Query ---
CODING QUERY To promote full compliance with coding requirements relating to patient care, provider participation is requested in all cases of head chopper uncertainty. Please assist us with the question(s) below: Coding Question: Please clarify if the shoulder infection was caused by her shoulder surgery (post-op infection) or unrelated (superficial abscess due to medication noncompliance). Thank you for your help! ( ) post-op infection due to shoulder replacement ( X) superficial abscess unrelated to previous surgery ( ) Other, explain Thank you! Raquel Ovalles Principal Diagnosis: "that condition established after study, to be chiefly responsible for occasioning the admission of the patient to the hospital for care." Co-Existing Principal Diagnosis: "when two or more diagnoses equally meet the criteria for principal diagnosis as determined by the circumstances of admission, diagnostic work up, and/or therapy provided, and the Alphabetic Index, Tabular List, or another coding guideline does not provide sequencing direction, any one of the diagnoses may be sequenced first." "When the physician has documented what appears to be a current diagnosis in the body of the record, but has not included the diagnosis in the final diagnostic statement, the physician should be asked whether the diagnosis should be added." (Source Coding [facility] 2 QTR90. p3-4) DENNIS
== END 2019-01-06 19:16 | disposition home health service (06) | DRG 580 ==
LOC: ASU 12:28 → 3E 17:06